=== PATIENT | male | born 1975 | race Caucasian/White ===

== ENCOUNTER 2022-06-14 09:59 | Emergency (ER) | payer MEDICARE, MEDICAID, SELFPAY ==
--- NOTE | ~2022-06-14 | XR_ITS ---
EXAMINATION: XR ANKLE, RIGHT CLINICAL INFORMATION: Twisted ankle. COMPARISON: None TECHNIQUE: AP, lateral, and mortise views of the right ankle. XR/XR ankle RT min 3V FINDINGS/IMPRESSION: Mild soft tissue swelling appears present over the lateral malleolus. No fracture or dislocation is directly visualized. The joint spaces appear maintained. No lytic or sclerotic bony lesion is identified.
[2022-06-14 10:12] VITALS: BP 120/81; PULSE 61; RESP 18; TEMP 36.6; O2SAT 98; BMI 25.0
--- NOTE | 2022-06-14 12:24 | ED_ITS ---
HPI - Extremity Injury (Lower) General Chief Complaint: Extremity Injury, Lower Stated Complaint: r ankle inj Time Seen by Provider: 06/14/22 12:23 Source: patient Mode of arrival: ambulatory Limitations: no limitations History of Present Illness HPI Narrative: 46-year-old male here with multiple injuries to the right ankle over the last few weeks most recently today had an inversion injury with pain over the ankle. No numbness, tingling, weakness. Pain is worsened with weight-bearing Related Data Home Medications Medication Instructions Recorded Confirmed gabapentin 300 mg capsule 300 mg PO BEDTIME 08/26/21 08/26/21 Previous Rx's Medication Instructions Recorded loratadine 10 mg tablet 10 mg PO DAILY 90 days #30 tabs 04/18/22 atorvastatin 20 mg tablet 20 mg PO DAILY for cholesterol #90 04/20/22 tabs ibuprofen 600 mg tablet 600 mg PO Q6H PRN pain #30 tabs 06/14/22 Allergies Allergy/AdvReac Type Severity Reaction Status Date / Time No Known Allergies Allergy Verified 08/26/21 14:10 Review of Systems Review of Systems: Yes all other systems are reviewed and are negative Constitutional: Constitutional: Reports no additional constitutional complaints, Denies body ache(s), Denies chills, Denies fever(s), Denies headache(s) and Denies weakness Eyes: Eyes: Reports no additional eye complaints and Denies change in vision ENT: Reports system reviewed and no additional complaints, except as documented, Denies dizziness, Denies headache(s), Denies nasal congestion, Denies nasal discharge and Denies neck pain Cardiovascular: Cardiovascular: Reports no additional cardiovascular complain ts, Denies chest pain, Denies leg edema and Denies dyspnea Respiratory: Respiratory: Reports no additional respiratory complaints, Denies cough and Denies dyspnea Gastrointestinal: Gastrointestinal: Reports no additional gastrointestinal complaints, Denies abdominal pain, Denies diarrhea, Denies nausea and Denies vomiting Genitourinary: Genitourinary: Denies urinary incontinence Musculoskeletal: Musculoskeletal: Reports no additional musculoskeletal complaints, Denies back pain, Reports arthralgias, Denies joint swelling, Denies limited range of motion, Denies neck pain, Denies numbness and Denies tingling Integumentary/Breasts: Skin/Breast: Reports system reviewed and no additional complaints, except as docu and Denies rash Neurologic: Reports system reviewed and no additional complaints, except as documented, Denies Abnormal speech present, Denies dizziness, Denies headache(s), Denies numbness, Denies tingling and Denies weakness PMFSH Past Medical History Attestation statement: The following information was validated with the patient. Source: old records reviewed and nursing notes reviewed Medical History High cholesterol Surgical History History of surgery Family History Family History Father CAD (coronary artery disease) Myocardial infarction Mother No problems noted. Brother Alive and well Social History Social History Housing: House Alcohol intake: former Patient Tobacco Use Status: Former Tobacco user Quit Date: 2012 Tobacco use type: Cigarette e-Cigarette/Vaping Use: Never Used Second Hand Smoke Exposure: No Advance Directives: No Advance Directives Information Provided: No service: No Current occupational status: disabled Current occupation: mental disabled. Physical Exam Vital Signs: Vital Signs: Last Vital Signs Temp 98 F 06/14/22 10:12 Pulse 61 06/14/22 10:12 Resp 18 06/14/22 10:12 BP 120/81 06/14/22 10:12 Pulse Ox 98 06/14/22 10:12 O2 Del Method 06/14/22 10:12 BMI result Body Mass Index 25.0 Const: General: cooperative, healthy appearing, comfortable and no acute distress Orientation/consciousness: patient oriented x3 Limitations: no limitations HEENT: Head: Yes normal to inspection Ears: hearing grossly normal bilaterally General nose exam: Normal external nose present Face and sinus: Yes normal facial exam Mouth: Normal oral and palatal mucosa present Throat: Yes posterior oropharynx normal Eyes: General: appearance normal, both eyes and all related structures Pupils: Equal, round and reactive pupils present Neck: Neck: Yes normal visual inspection Chest: Chest palpation & inspection: normal inspection of the chest Resp: Effort & Inspection: normal respiratory effort Auscultation: clear to auscultation bilaterally Cardio: Rate: regular rate Rhythm: regular rhythm Peripheral pulses: Peripheral pulses 2+ throughout GI: Inspection: Yes normal to inspection Palpation (GI): Soft to palpation and nontender Auscultation: normal bowel sounds Back/Spine/Pelvis: Thoracic/Lumbar Spine: thoracic and lumbar spine normal to inspection Skin: General skin exam: no rashes or lesions noted Neuro: General: patient oriented x3, no focal motor deficits and normal sensation to monofilament Cranial nerves: Yes Equal, round and reactive pupils present Cognition (Neuro): normal cognition Speech: No Abnormal speech present Gait exam (Neuro): Normal gait present Motor exam (neuro): 5/5 motor strength present throughout Extrem: Other: Tenderness over the right lateral ankle with full range of motion. Neurova scular intact distally. Palpable DP and PT pulses General: Yes normal to inspection Course Course Course Narrative: X-ray show no acute finding. Likely sprain. Patient placed in air cast and crutches. Reviewed rice. Reviewed worrisome signs and symptoms of when to re turn to the emergency room. Comfortable discharge home. MDM - Extremity Injury (Lower) MDM Narrative Medical decision making narrative: Inversion injury to right ankle. Will check x-rays Medical Records Attestation: I reviewed the patient's medical records. Lab Data Attestation: I reviewed the patient's lab results. Imaging Data ankle xray: Attestation: I personally reviewed and interpreted this imaging study as follows: Radiologist's impression: Launch?Image [place] [address] XRay Report Signed Patient: Adal Colbert MR#: [id number] : 1975 Acct:[id number] Age/Sex: 46 / M ADM Date: 06/14/22 Loc: HO.ED Attending Dr: Ordering Physician: Generic ED Physician Date of Service: 06/14/22 Procedure(s): XR ankle RT min 3V Accession Number(s): [id number] cc: Generic ED Physician~ EXAMINATION: XR ANKLE, RIGHT CLINICAL INFORMATION: Twisted ankle.? COMPARISON: None? TECHNIQUE: AP, lateral, and mortise views of the right ankle. XR/XR ankle RT min 3V FINDINGS/IMPRESSION: ? Mild soft tissue swelling appears present over the lateral malleolus. ? No fracture or dislocation is directly visualized. The joint spaces appear maintained. ? No lytic or sclerotic bony lesion is identified. Procedures Procedure Narrative Procedure Narrative: Air cast, crutches Discharge Plan Discharge Clinical Impression: Ankle sprain and strain Patient Disposition: Home, Self-Care Instructions: Ankle Sprain (ED) Additional Instructions: Rest, ice, elevation Use the Aircast and crutches for ambulation until able to bear weight without experiencing pain Prescriptions: New ibuprofen 600 mg tablet 600 mg PO Q6H PRN (Reason: pain) Qty: 30 0RF No Action loratadine 10 mg tablet 10 mg PO DAILY 90 Days Qty: 30 3RF atorvastatin 20 mg tablet 20 mg PO DAILY Qty: 90 1RF gabapentin 300 mg capsule 300 mg PO BEDTIME Referrals: Liang Bautista PA-C [Primary Care Provider] - 1 week (for persistent symptoms )
[2022-06-14] MEDS: Ibuprofen 600 MG TABLET PO (12:49)
== END 2022-06-14 12:59 | disposition home or self-care (01) ==
PROVIDERS: Emergency Provider Emergency Medicine; PCP Physician Assistant
DX: S93.401A Sprain of unspecified ligament of right ankle, initial encounter (principal); S96.911A Strain of unspecified muscle and tendon at ankle and foot level, right foot, initial encounter; X50.1XXA Overexertion from prolonged static or awkward postures, initial encounter; Y93.9 Activity, unspecified; Y92.9 Unspecified place or not applicable; Y99.9 Unspecified external cause status
CPT/HCPCS: 73610; 99283; 99284

== ENCOUNTER 2023-07-28 13:46 | Outpatient (AMB) | payer MEDICARE, MEDICAID, SELFPAY ==
--- NOTE | 2023-07-28 13:56 | A.OFFPC_ITS ---
Vital Signs 07/28/23 14:02 Height 5 ft 7 in Weight 170 lb 4 oz BMI 26.7 BP 112/80 Blood Pressure Location Lt brachial Position Sitting Respiration 17 Pulse 78 Pulse Source Pulse Oximeter Pulse Oximetry (%) 98 Oxygen Delivery Method Room Air Intake Visit Reasons: discuss medical issues Intake Note: Pt here to request an emotional support letter to keep his mother's two cats after her passing. Senior Net Web Developer Required: No Accompanied by: Self / Same As Patient Allergies No Known Allergies Allergy (Verified 07/28/23 14:03) Tobacco use date assessed: 02/19/23 Dental Screening Dental Screen Date: 07/28/23 Did you have a dental visit in the last 12 months?: No Did you have a dental problem in the last 6 months where you did not have access to dental care?: No Was dental information given to patient?: Patient declined HPI HPI Comments History of Present Illness Details Patient is a 47 year male here today for a friend establish care visit.? Patient has a past medical history significant for hyperlipidemia, bipolar disorder, ADHD , allergic rhinitis. Patient reports today to discuss no letter for emotional support animal. Patient made aware this PCP does not write letters for emotional support animals and patient was advised to follow-up with a psychiatrist. Patient not currently following with a psychiatrist, offered referral to Psychiatry. Patient visibly not happy that he was deferred to Psychiatry and states that he would just follow up with his therapist in asked to leave this appointment and got up in left. Denies any other complaints. [facility] Surgical History History of surgery Family History Father CAD (coronary artery disease) Myocardial infarction Mother No problems noted. Brother Alive and well Social History Housing: House Alcohol intake: former Patient Tobacco Use Status: Former Tobacco user Quit Date: 2012 Tobacco use type: Cigarette e-Cigarette/Vaping Use: Never Used Second Hand Smoke Exposure: No service: No Current occupational status: disabled Current occupation: mental disabled. Cognitive needs: No Hearing needs: No Vision needs: No Questionnaire Thrive Questionnaire Date Thrive assessed: 02/19/23 MAGY-7 AMB Questionnaire MAGY-7 Date MAGY - 7 assessed: 02/19/23 Source: Developed by Drs. Jatin Lee, Jenniffer Leong, Kodak Andrew and colleagues, with an educational duy from [employer]. Review of Systems Const Denies chills, Denies fatigue, Denies fever(s) and Denies poor appetite Eyes Denies no additional complaints ENT Reports no additional complaints Card Denies chest pain, Denies syncope, Denies rapid heart rate and Denies dyspnea Resp Denies cough and Denies dyspnea GI Reports no additional complaints Reports no additional complaints, Denies dysuria, Denies urinary frequency and Denies urinary urgency Neuro Denies confusion and Denies syncope Psych Denies confusion Endo Denies fatigue Physical exam (Primary Care) Vital Signs: Last Vital Signs Pulse 78 07/28/23 14:02 Resp 17 07/28/23 14:02 BP 112/80 07/28/23 14:02 Pulse Ox 98 07/28/23 14:02 Oxygen Delivery Method Room Air 07/28/23 14:02 BMI result Body Mass Index 26.7 Tobacco/Smoking Status: Tobacco use Status Tobacco use date assessed 02/19/23 07/28/23 13:56 Patient Tobacco Use Status Former Tobacco user 07/28/23 13:56 Tobacco use type Cigarette 07/28/23 13:56 e-Cigarette/Vaping Use Never Used 07/28/23 13:56 Thrive Assessment: Date of Thrive Assessment Date Thrive assessed 02/19/23 07/28/23 13:56 Const General: No confusion Orientation/consciousness: No confusion Neuro General: No confusion Office Procedures Flu Questionnaire Does the patient have a severe egg allergy?: No Does the patient have severe life threatening allergies?: No Does the patient have a fever or illness today?: No Has the patient ever had Guillain-[place] Syndrome?: No Has the patient ever had any past reaction to a flu shot?: No Immunizations flu vacc [id number] 6mos up(PF) 60 mcg(15 mcgx4)/0.5 mL IM syringe Performing Provider: WALT Arthur [facility] [place] [facility] Administered by: LUCAS Jon on 07/28/23 14:14 Dose Route Admin Location Dispensed Lot Number Expiration Date NDC Cannery Tender Engineer 0.5 mL IM Left Deltoid 0.5 mL [id number] 04/03/24 88953-775-79 Astonish Results VIS Given Date VIS Provided VIS Publication Date 07/28/23 Single Vaccine 21 Eligibility Eligibility Date Funding Source Not [facility] Eligible 07/28/23 Private Assessment and Plan Assessment & Plan (1) Bipolar 1 disorder, manic, moderate: Code(s): F31.12 - Bipolar disorder, current episode manic without psychotic features, moderate Plan: Patient did referred to follow-up with Psychiatry for emotional support animal. (2) HLD (hyperlipidemia): Code(s): E78.5 - Hyperlipidemia, unspecified Qualifiers: Hyperlipidemia type: mixed hyperlipidemia Qualified Code(s): E78.2 - Mixed hyperlipidemia Plan: Continue on atorvastatin 20 mg daily. Follow low-cholesterol diet. Orders: Orders Influenza [id number] Immunization 07/28/23 Z23 - Encounter for immunization Medications: New loratadine 10 mg PO DAILY 30 tabs 3RF Coding Level of Care Code Est Pt Level 3 (84394) Diagnoses Bipolar 1 disorder, manic, moderate F31.12 Mixed hyperlipidemia E78.2 Hyperlipidemia type: mixed hyperlipidemia
[2023-07-28 14:02] VITALS: BP 112/80; PULSE 78; RESP 17; O2SAT 98; BMI 26.7
== END 2023-07-28 14:59 | disposition home or self-care (01) ==
PROVIDERS: PCP Physician Assistant; Visit Provider Nurse Practitioner Family
DX: Z23 Encounter for immunization (principal)
CPT/HCPCS: 90471; 90686; 99213

== ENCOUNTER 2023-10-08 12:22 | Outpatient (AMB) | payer MEDICARE, MEDICAID, SELFPAY ==
--- NOTE | 2023-10-08 12:34 | MHC.PC.OV ---
Vital Signs 10/08/23 12:39 Height 5 ft 7 in Weight 163 lb 8 oz BMI 25.6 BP 110/60 Blood Pressure Location Lt brachial Position Sitting Pulse 75 Pulse Source Pulse Oximeter Pulse Oximetry (%) 96 Oxygen Delivery Method Room Air Intake Visit Reasons: pain and lump behind right knee Intake Note: Patient is here today for pain and swelling behind right knee ongoing for months Health Physicist Required: No Mantel Craftsman: Not Required per policy Accompanied by: Self / Same As Patient Allergies No Known Allergies Allergy (Verified 10/08/23 12:38) Medication List - Last Reconciled 10/08/23 by Odell Muller MD atorvastatin 20 mg PO DAILY cetirizine (Zyrtec) 10 mg PO DAILY 90 days gabapentin 300 mg PO BEDTIME 30 days ibuprofen 600 mg PO Q6H 10 days loratadine 10 mg PO DAILY Tobacco use date assessed: 10/08/23 Dental Screening Dental Screen Date: 10/08/23 Did you have a dental visit in the last 12 months?: No Did you have a dental problem in the last 6 months where you did not have access to dental care?: No Was dental information given to patient?: No HPI pain and lump behind right knee HPI Details 48-year-old male presents to the office for a follow-up visit. I am covering for his primary care provider. Patient is complaining of a painful swelling behind his right knee. He has had this swelling for many years. However in the last 2 or 3 days it has gotten very painful. He has not able to bend his knee completely. Does not recall any recent fall or injury. [facility] Surgical History History of surgery Family History Father CAD (coronary artery disease) Myocardial infarction Mother No problems noted. Brother Alive and well Social History Housing: House Alcohol intake: former Patient Tobacco Use Status: Former Tobacco user Quit Date: 2012 Tobacco use type: Cigarette e-Cigarette/Vaping Use: Never Used Second Hand Smoke Exposure: No service: No Current occupational status: disabled Current occupation: mental disabled. Cognitive needs: No Hearing needs: No Vision needs: No Questionnaire PHQ-9 Over the last 2 weeks, how often have you been bothered by any of the following problems? 1. Little interest or pleasure in doing things: not at all 2. Feeling down, depressed, or hopeless: not at all 3. Trouble falling or staying asleep, or sleeping too much: not at all 4. Feeling tired or having little energy: not at all 5. Poor appetite or overeating: not at all 6. Feeling bad about yourself - or that you are a failure or have let yourself or your family down: not at all 7. Trouble concentrating on things, such as reading the newspaper or watching television: not at all 8. Moving or speaking so slowly that other people could have noticed. Or the opposite - being so fidgety or restless that you have been moving around a lot more than usual: not at all 9. Thoughts that you would be better off or of hurting yourself in some way: not at all Total score: 0 Depression Screening Interpretation: Negative Depression Screening Done: Yes Source: Developed by Drs. Jatin Lee, Jenniffer Leong, Kodak Andrew and colleagues, with an educational duy from [employer]. Thrive Questionnaire Date Thrive assessed: 10/08/23 I am a: Patient What is your living situation today?: I have a steady place to live Within the past 12 months, did the food you bought not last and you didn't have the money to get more?: Never true Within the past 12 months, did you worry whether your food would run out before you got money to buy more?: Never true Do you have trouble paying for medicines?: No Do you have trouble getting transportation to medical appointments?: No Do you have trouble paying your heating and electricity bill?: No Do you have trouble taking care of your child, family member or friend?: No Do you have trouble with day-to-day activities such as bathing, preparing meals, shopping, managing finances, etc.?: No Are you currently unemployed and looking for a job?: No Are you interested in more education?: No Currently or been in a relationship where the following occur: no concerns reported AUDIT C Alcohol Use Questionnaire (AUDIT-C) 1. How often do you have a drink containing alcohol?: Never Total Score: 0 MAGY-7 AMB Questionnaire MAGY-7 Date MAGY - 7 assessed: 10/08/23 Feeling nervous, anxious, or on edge: 0 = Not at all Not being able to stop or control worryin = Not at all Worrying too much about different things: 0 = Not at all Trouble relaxin = Not at all Being so restless that it is hard to sit still: 0 = Not at all Becoming easily annoyed or irritable: 0 = Not at all Feeling afraid as if something awful might happen: 0 = Not at all Total MAGY-7 score (0-4 normal; 5-9 mild; 10-14 moderate; 15-21 severe): 0 Source: Developed by Drs. Jatin Lee, Jenniffer Leong, Kodak Andrew and colleagues, with an educational duy from [employer]. Physical exam (Primary Care) Vital Signs: Last Vital Signs Pulse 75 10/08/23 12:39 BP 110/60 10/08/23 12:39 Pulse Ox 96 10/08/23 12:39 Oxygen Delivery Method Room Air 10/08/23 12:39 BMI result Body Mass Index 25.6 Tobacco/Smoking Status: Tobacco use Status Tobacco use date assessed 10/08/23 10/08/23 12:45 Patient Tobacco Use Status Former Tobacco user 10/08/23 12:35 Tobacco use type Cigarette 10/08/23 12:35 e-Cigarette/Vaping Use Never Used 10/08/23 12:35 PHQ-9: PHQ-9 Score PHQ-9: Total score 0 10/08/23 13:19 Depression Screening Interpretation: Negative Thrive Assessment: Date of Thrive Assessment Date Thrive assessed 10/08/23 10/08/23 12:35 Currently or been in a relationship where the following occur: no concerns reported Extrem Other: Right knee: Tender swelling in the popliteal fossa. The swelling is firm Office Procedures Flu Questionnaire Does the patient have a severe egg allergy?: No Does the patient have severe life threatening allergies?: No Does the patient have a fever or illness today?: No Has the patient ever had Guillain-[place] Syndrome?: No Has the patient ever had any past reaction to a flu shot?: No Immunizations flu vacc [id number] 6mos up(PF) 60 mcg(15 mcgx4)/0.5 mL IM syringe Performing Provider: dOell Muller MD [facility] Administered by: FRANCHESCA Melara on 10/08/23 13:19 Dose Route Admin Location Dispensed Lot Number Expiration Date NDC Infrastructure Project Manager 0.5 mL IM Right Deltoid 0.5 mL [id number] 04/03/24 [id number] [employer] VIS Given Date VIS Provided VIS Publication Date 10/08/23 Single Vaccine 21 Eligibility Eligibility Date Funding Source Not [facility] Eligible 10/08/23 Private Assessment and Plan Assessment & Plan (1) Jackson's cyst of knee: Code(s): M71.20 - Synovial cyst of popliteal space [Jackson], unspecified knee Plan: X-ray of the knee ordered. Knee brace provided. Meloxicam ordered. Patient was advised rest till the inflammation subsides. Orders: Orders Influenza [id number] Immunization Today Z23 - Encounter for immunization Medications: Refilled loratadine 10 mg PO DAILY 30 tabs 3RF Coding Level of Care Code Est Pt Level 4 (78778) Diagnoses Jackson's cyst of knee M71.20
[2023-10-08 12:39] VITALS: BP 110/60; PULSE 75; O2SAT 96; BMI 25.6
== END 2023-10-08 14:00 | disposition home or self-care (01) ==
PROVIDERS: PCP Physician Assistant; Visit Provider Internal Medicine
DX: M71.20 Synovial cyst of popliteal space [Baker], unspecified knee (principal); Z23 Encounter for immunization
CPT/HCPCS: 90471; 90686; 99214

== ENCOUNTER 2023-11-02 13:05 | Outpatient (REF) | payer MEDICARE, MEDICAID, SELFPAY ==
--- NOTE | ~2023-11-02 | US_ITS ---
EXAMINATION: US EXTREMITY NONVASCULAR, RIGHT POPLITEAL FOSSA CLINICAL INFORMATION: Right leg pain behind right knee, popliteal fossa. COMPARISON: None available. TECHNIQUE: Targeted ultrasound images were obtained by the section crews activities clerk of the area of concern as indicated by the patient in the right popliteal fossa. Radiologist was not in attendance. Images were later provided for interpretation. . FINDINGS: There is an 8.6 x 1.8 x 6.3 cm complex fluid collection with mixed cystic and possibly solid components, in the right popliteal fossa. US/US extremity nonvascular IMPRESSION: Large 8.6 cm complex collection with possible solid components in the right popliteal fossa. Correlation with clinical exam recommended to determine further management including possible MRI with gadolinium could be considered for further evaluation.
== END 2023-11-02 13:06 | disposition home or self-care (01) ==
LOC: HO.US 13:05
PROVIDERS: Visit Provider Internal Medicine
DX: M71.20 Synovial cyst of popliteal space [Baker], unspecified knee (principal)
CPT/HCPCS: 76882

== ENCOUNTER 2023-11-17 08:33 | Outpatient (REF) | payer MEDICARE, MEDICAID, SELFPAY ==
--- NOTE | ~2023-11-17 | XR_ITS ---
EXAMINATION: XR BOTH KNEES AP STANDING XR RIGHT KNEE, 2 VIEWS CLINICAL INFORMATION: Right knee pain COMPARISON: None TECHNIQUE: Standing AP view of both knees and lateral and sunrise views of the right knee. FINDINGS: LEFT KNEE: Large joint effusion. No fracture or malalignment. Small patellar osteophytes. Joint spaces appear well-preserved. Mild soft tissue swelling. Joint spaces are normal. RIGHT KNEE: The bones, joints, and soft tissues are normal on the single AP view. XR/XR knee RT 2V IMPRESSION: Large left knee joint effusion. No acute osseous findings. Minimal patellofemoral compartment osteoarthritis.
--- NOTE | ~2023-11-17 | XR_ITS ---
EXAMINATION: XR BOTH KNEES AP STANDING XR RIGHT KNEE, 2 VIEWS CLINICAL INFORMATION: Right knee pain COMPARISON: None TECHNIQUE: Standing AP view of both knees and lateral and sunrise views of the right knee. FINDINGS: LEFT KNEE: Large joint effusion. No fracture or malalignment. Small patellar osteophytes. Joint spaces appear well-preserved. Mild soft tissue swelling. Joint spaces are normal. RIGHT KNEE: The bones, joints, and soft tissues are normal on the single AP view. XR/XR knee standing BI IMPRESSION: Large left knee joint effusion. No acute osseous findings. Minimal patellofemoral compartment osteoarthritis.
== END 2023-11-17 08:34 | disposition home or self-care (01) ==
LOC: HO.HOSX 08:33
PROVIDERS: Visit Provider Physician Assistant
DX: M23.91 Unspecified internal derangement of right knee (principal)
CPT/HCPCS: 20610; 73560; 73565; 99202; J1040

== ENCOUNTER 2023-11-17 15:12 | Outpatient (AMB) | payer MEDICARE, MEDICAID, SELFPAY ==
--- NOTE | 2023-11-17 15:28 | MHC.OFFVIS ---
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 Intake Note: Adal is a 48 year old male who presents today as a new patient for a evaluation for his right knee pain. He was seen with his PCP on 10/08/22 for the lump be hind his knee. Patient reports he noticed a lump behind his knee about a year ago. He states that his pain is worse when he is walking, and using the stairs. Patient was given a knee brace and meloxicam which are providing him with relief. 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 HPI Details 48-year-old male who presents in the office today, as a new patient, for an evaluation of right knee pain. The patient was seen in her PCP office on 10/08/2023 where he has a complaint of painful edema behind the right knee for many years. Ultrasound of the right knee were obtained. He was supplied with a knee brace. While in the office today the patient reports noticing the lump behind the knee about a year ago, 2022. He states the pain increases when ambulating and using the stairs. He reports the pain increasing about 8 months ago with changes in size. He states ice and rest help give him some relief. [facility] Surgical History History of surgery Family History Father CAD (coronary artery disease) Myocardial infarction Mother No problems noted. Brother Alive and well Social History Housing: House Alcohol intake: former Patient Tobacco Use Status: Former Tobacco user Quit Date: 2012 Tobacco use type: Cigarette e-Cigarette/Vaping Use: Never Used Second Hand Smoke Exposure: No service: No Current occupational status: disabled Current occupation: mental disabled. Cognitive needs: No Hearing needs: No Vision needs: No Review of Systems Const All systems reviewed & are unremarkable except as noted in HPI and below Physical Exam Const General: cooperative and no acute distress Orientation/consciousness: patient oriented x3 Resp Effort & Inspection: normal respiratory effort and able to speak in complete sentences Cardio Peripheral pulses: Peripheral pulses 2+ throughout Skin General skin exam: no rashes or lesions noted Neuro General: patient oriented x3 Extrem Other: Right knee: Normal to inspection. No ecchymosis, erythema, or joint effusion. No tenderness to palpation to the medial or lateral joint lines. Full knee extension and flexion. Negative Tiffany's. Negative anterior drawer. NVI. Office Procedures Joint Injection/Drain Joint Injection/Drain Primary Site: right knee Prep: site was prepped using aseptic technique, ethochloride spray was applied and injection warnings given Injected: 80 mg of, DepoMedrol and with 8 mL of (2% plain lido) Approach Used: anterolateral Procedure: The patient tolerated the procedure well, but had some pain with the injection and there was some relief with the local anesthesia Coding 32144 - Large joint Procedure code (CPT) selection complete Assessment & Plan Assessment & Plan (1) Internal derangement of right knee: Code(s): M23.91 - Unspecified internal derangement of right knee Plan Mr. Colbert is a 48-year-old male who presents in the office today, as a new patient, for an evaluation of right knee pain. The patient was seen in her PCP office on 10/08/2023 where he has a complaint of painful edema behind the right knee for many years. Ultrasound of the right knee were obtained. He was supplied with a knee brace. While in the office today the patient reports noticing the lump behind the knee about a year ago, 2022. He states the pain increases when ambulating and using the stairs. He reports the pain increasing about 8 months ago with changes in size. He states ice and rest help give him some relief. We discussed the patient having a levine?s cyst and different ways to treat the cyst, inflammation, and irritation. The patient was offered a cortisone injection in the right knee with 80 mg of DepoMedrol. The patient was explained the risk, benefits, and alternatives to receiving this injection. After receiving consent for the injection, the patient had the procedure done while in office today. The patient tolerated the procedure well with no complications. Follow up will be PRN, or sooner if needed. X-rays of the right knee which were obtained while in the office today and were reviewed by me, Lady Gonzalez PA-C, revealed no acute fracture or dislocation. Ultrasound of the right knee, obtained on 11/02/2023, revealed: Large 8.6 cm complex collection with possible solid components in the right popliteal fossa. Correlation with clinical exam recommended to determine further management including possible MRI with gadolinium could be considered for further evaluation. Orders: Orders XR knee standing BI Today M25.569 - Pain in unspecified knee XR knee RT 2V Today M25.569 - Pain in unspecified knee Patient Instructions: Scribed by Jody Rebolledo bacteriologist medical, for Lady Gonzalez PA-C on 11/17/2023 at 3:20 pm, EST. Coding Level of Care Code New Pt Level 3 (99431) Diagnoses Internal derangement of right knee M23.91 CPT Codes Coding - 33203 Large joint: 87846 - Large joint ([id number])
== END 2023-11-17 15:51 | disposition home or self-care (01) ==
PROVIDERS: PCP Physician Assistant; Visit Provider Physician Assistant
DX: M23.91 Unspecified internal derangement of right knee (principal)
CPT/HCPCS: 20610; 99203

== ENCOUNTER 2023-12-03 13:50 | Outpatient (AMB) | payer MEDICARE, MEDICAID, SELFPAY ==
[2023-12-03 14:09] VITALS: BP 104/62; PULSE 64; O2SAT 98; BMI 25.9
--- NOTE | 2023-12-03 14:09 | MHC.PC.OV ---
Vital Signs 12/03/23 14:09 Height 5 ft 7 in Weight 165 lb 6 oz BMI 25.9 BP 104/62 Blood Pressure Location Lt brachial Position Sitting Pulse 64 Pulse Source Pulse Oximeter Pulse Oximetry (%) 98 Oxygen Delivery Method Room Air Intake Visit Reasons: Right Knee Inflammation and Pain Intake Note: Pt is here for experiencing inflammation and pain in the right knee for approximately two weeks. 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 Over the last several weeks he has noted right knee swelling and a large palpable cystic like structure behind his right knee. He has followed up with Orthopedics and received a cortisone injection which temporarily gave him some pain relief and decreased his swelling. He reports his swelling is now back and still has pain. He is an avid skateboarder. He continues to pain and swelling in his right knee though better than initial presentation. Will try for MRI of the right knee as he does have a large popliteal cystic like structure and continues to have notable swelling in his right knee. 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 [facility] Surgical History History of surgery Family History Father CAD (coronary artery disease) Myocardial infarction Mother No problems noted. Brother Alive and well Social History Housing: House Alcohol intake: former Patient Tobacco Use Status: Former Tobacco user Quit Date: 2012 Tobacco use type: Cigarette e-Cigarette/Vaping Use: Never Used Second Hand Smoke Exposure: No service: No Current occupational status: disabled Current occupation: mental disabled. Cognitive needs: No Hearing needs: No Vision needs: No Questionnaire Thrive Questionnaire Date Thrive assessed: 10/08/23 MAGY-7 AMB Questionnaire MAGY-7 Date MAGY - 7 assessed: 10/08/23 Source: Developed by Drs. Jatin Lee, Jenniffer Leong, Kodak Andrew and colleagues, with an educational duy from [employer]. Review of Systems Const Denies headache(s) Eyes Denies loss of vision ENT Denies vertigo, Denies dizziness, Denies headache(s) and Denies sore throat Card Denies chest pain, Denies leg edema and Denies lightheadedness Resp Denies cough, Denies hemoptysis and Denies wheezing GI Denies abdominal pain, Denies melena, Denies constipation, Denies diarrhea and Denies vomiting Denies dysuria, Denies urinary frequency and Denies urinary urgency Musc Denies arthralgias, Denies joint swelling, Denies numbness and Denies tingling Neuro Denies Abnormal speech present, Denies behavioral changes, Denies vertigo, Denies dizziness, Denies headache(s), Denies loss of vision, Denies memory loss, Denies numbness and Denies tingling Psych Denies anxiety, Denies behavioral changes, Denies depression, Denies memory loss and Denies panic attacks Arun/Lymph Denies easy bleeding and Denies easy bruising Aller/Immun Denies wheezing Physical exam (Primary Care) Vital Signs: Last Vital Signs Pulse 64 12/03/23 14:09 BP 104/62 12/03/23 14:09 Pulse Ox 98 12/03/23 14:09 Oxygen Delivery Method Room Air 12/03/23 14:09 BMI result Body Mass Index 25.9 Tobacco/Smoking Status: Tobacco use Status Tobacco use date assessed 10/08/23 12/03/23 14:14 Patient Tobacco Use Status Former Tobacco user 12/03/23 14:14 Tobacco use type Cigarette 12/03/23 14:14 e-Cigarette/Vaping Use Never Used 12/03/23 14:14 Thrive Assessment: Date of Thrive Assessment Date Thrive assessed 10/08/23 12/03/23 14:14 Const General: healthy appearing, no acute distress, alert and awake Nutritional Appearance: well nourished Orientation/consciousness: oriented to person, oriented to place and oriented to time HENMT Ears: TM's normal bilaterally General nose exam: Normal nasal mucous membranes and turbinates present Eyes Conjunctivae: conjunctivae normal Sclerae: sclerae normal Pupils: Equal, round and reactive pupils present Neck Neck: Yes no lymphadenopathy and Yes no JVD Thyroid: Thyroid normal Carotids: no bruits Resp Effort & Inspection: normal respiratory effort and not tachypneic Auscultation: no crackles, no rales, no rhonchi and no wheezes Cardio Rate: regular rate Rhythm: regular rhythm Heart sounds: no murmurs and normal S1 and S2 GI Palpation (GI): Soft to palpation, nontender, no hepatomegaly and no splenomegaly Auscultation: normal bowel sounds Skin General skin exam: no rashes or lesions noted and dry skin Neuro General: oriented to person, oriented to place and oriented to time Cranial nerves: Yes Equal, round and reactive pupils present Speech: No Abnormal speech present Gait exam (Neuro): Normal gait present Motor exam (neuro): no tremor noted Extrem Right upper extremity: full ROM Left upper extremity: full ROM Right lower extremity: full ROM; no edema Left lower extremity: full ROM; no edema Knee images: 1. LARGE POPLITEAL MASS Psych Mental Status: mental status grossly normal Speech and movement: Normal speech and movement present Affect: normal affect Attitude: cooperative Thought process: Normal thought process present Assessment and Plan Assessment & Plan (1) Internal derangement of right knee: Code(s): M23.91 - Unspecified internal derangement of right knee Plan: Patient continues to have swelling pain in his right knee. Did get cortisone injection which helped temporarily reduce his pain and swelling though has returned. Does have large with seems to be a synovial cyst behind right knee which is likely causing lot of his issue. Will get MRI with contrast to better define the popliteal popliteal cyst. He will continue resting, icing and using NSAIDs.. Advised him to follow-up with his orthopedic for further management. (2) Synovial cyst of knee: Code(s): M71.20 - Synovial cyst of popliteal space [Jackson], unspecified knee Qualifiers: Laterality: right Qualified Code(s): M71.21 - Synovial cyst of popliteal space [Jackson], right knee Plan: As above Orders: Orders MR knee RT w con 12/03/23 M23.91 - Unspecified internal derangement of right knee, M71.20 - Synovial cyst of popliteal space [Jackson], unspecified knee Coding Level of Care Code Est Pt Level 3 (10655) Diagnoses Internal derangement of right knee M23.91 Synovial cyst of right knee M71.21 Laterality: right
== END 2023-12-03 15:39 | disposition home or self-care (01) ==
PROVIDERS: PCP Physician Assistant; Visit Provider Physician Assistant
DX: M23.91 Unspecified internal derangement of right knee (principal); M71.21 Synovial cyst of popliteal space [Baker], right knee
CPT/HCPCS: 99213

== ENCOUNTER 2023-12-31 07:57 | Outpatient (REF) | payer MEDICARE, MEDICAID, SELFPAY ==
--- NOTE | ~2023-12-31 | MR_ITS ---
EXAMINATION: MR KNEE WITHOUT CONTRAST, RIGHT CLINICAL INFORMATION: Synovial cyst at popliteal space. Mass behind right knee. Continued pain and swelling. COMPARISON: Ultrasound of the popliteal fossa October 2023, x-ray of the right knee November 2023. TECHNIQUE: MRI of the knee without contrast was performed using routine sequences on a high-field scanner. FINDINGS: Exam is partially limited by image-degrading motion artifact most evident on the axial series. MENISCI: Medial Meniscus: Intact. Lateral Meniscus: There is a longitudinal vertical focus of linear increased signal from the femoral to the tibial articular surface of the anterior horn indicative of meniscal tear. See sagittal image 21 series 4. LIGAMENTS: Cruciate: Intact. Collateral: Intact. EXTENSOR MECHANISM: Intact. ARTICULAR CARTILAGE/BONE: Patellofemoral Compartment: Evaluation of the patella cartilage is limited because of the motion artifact. No definite articular abnormality. Medial Compartment: There is minimal subchondral edema and/or cystic change along the lateral weightbearing medial femoral condyle. Overlying articular cartilage grossly intact. Overall minimal arthrosis. Lateral Compartment: Normal. JOINT FLUID AND BURSAE: There is prominent joint effusion with prominent intermediate signal synovitis throughout. There is also a moderate/large Jackson's cyst with prominent similar-appearing intermediate signal synovitis. The cyst measures 4 cm transverse, 2.5 cm AP and 10 cm craniocaudal. MR/MR knee RT wo con IMPRESSION: 1. Tear of the anterior horn of the lateral meniscus. 2. Prominent joint effusion and synovitis. The appearance and the degree of synovitis suggests an underlying inflammatory arthropathy. 3. Moderate/large Jackson's cyst. 4. Minimal arthrosis of the medial compartment.
== END 2023-12-31 07:58 | disposition home or self-care (01) ==
LOC: HO.MRI 07:57
PROVIDERS: PCP Physician Assistant; Visit Provider Physician Assistant
DX: M71.21 Synovial cyst of popliteal space [Baker], right knee (principal); M23.91 Unspecified internal derangement of right knee
CPT/HCPCS: 73721

== ENCOUNTER 2024-01-22 09:11 | Outpatient (AMB) | payer MEDICARE, MEDICAID, SELFPAY ==
--- NOTE | 2024-01-22 09:15 | MHC.OFFVIS ---
Vital Signs 01/22/24 09:22 Height 5 ft 7 in Weight 165 lb BMI 25.8 Intake Visit Reasons: OV-right knee/cyst-discuss surgery Intake Note: Adal is a 48 year old male who presents today for a follow up of his right knee. Patient reports that he is having continued pain. He explains that he refused the contrast of for the MRI. He would like to have surgery, and will refuse any other treatment of the knee. Allergies No Known Allergies Allergy (Verified 01/22/24 09:17) HPI HPI OV-right knee/cyst-discuss surgery: Details: 48-year-old male who presents in the office today for a follow up of right knee pain. I last saw the patient in the office on 11/17/2023 when we discussed ways of treating a levine?s cyst and he was given a cortisone injection. While in the office today the patient reports he is having continued pain. He reports he refused the contrast for the MRI. He would like to have surgery and states he will refuse any other treatment of the right knee. Patient states the cortisone injection gave him a few days of relief. He states the pain in the knee is throughout the knee. He states he has increased pain when lying on his back and standing for more than 25 minutes. He states he is unable to do anything, like skateboarding or other activities in life, and this is upsetting him. Patient states he no longer eats sugar due to his pain. He also reports buying a new bed to help with pain and cannot find relief. 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 Patient denies use of cocaine. [facility] [place] Surgical History History of surgery Family History Father CAD (coronary artery disease) Myocardial infarction Mother No problems noted. Brother Alive and well Social History Housing: House Alcohol intake: former Patient Tobacco Use Status: Former Tobacco user Quit Date: 2012 Tobacco use type: Cigarette e-Cigarette/Vaping Use: Never Used Second Hand Smoke Exposure: No service: No Current occupational status: disabled Current occupation: mental disabled. Cognitive needs: No Hearing needs: No Vision needs: No Review of Systems Const All systems reviewed & are unremarkable except as noted in HPI and below Physical Exam Vital Signs: BMI result Body Mass Index 25.8 Const General: cooperative, healthy appearing and no acute distress Resp Effort & Inspection: normal respiratory effort and able to speak in complete sentences Cardio Rate: regular rate Peripheral pulses: Peripheral pulses 2+ throughout GI Palpation (GI): Soft to palpation Skin Lesions: no lesions Rashes: no rashes Extrem Other: Right knee: Normal to inspection. No ecchymosis, erythema, or joint effusion. No tenderness to palpation to the medial or lateral joint lines. Full knee extension and flexion. Negative Tiffany's. Negative anterior drawer. NVI. Assessment & Plan Assessment & Plan (1) Internal derangement of right knee: Code(s): M23.91 - Unspecified internal derangement of right knee Category: Medical Plan Mr. Colbert is a 48-year-old male who presents in the office today for a follow up of right knee pain. I last saw the patient in the office on 11/17/2023 when we discussed ways of treating a levine?s cyst and he was given a cortisone injection. While in the office today the patient reports he is having continued pain. He reports he refused the contrast for the MRI. He would like to have surgery and states he will refuse any other treatment of the right knee. Patient states the cortisone injection gave him a few days of relief. He states the pain in the knee is throughout the knee. He states he has increased pain when lying on his back and standing for more than 25 minutes. He states he is unable to do anything, like skateboarding or other activities in life, and this is upsetting him. Patient states he no longer eats sugar due to his pain. He also reports buying a new bed to help with pain and cannot find relief. 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 Patient denies use of cocaine. Patient will be scheduled for further evaluation of the right knee with Dr. Leon and to discuss possible treatment options. Also, to further discuss the MRI results with the patient. Follow up will be with Dr. Leon, or sooner if needed. Patient Instructions: Scribed by franki Dacosta scribe, lisa Gonzalez PA-C on 01/22/2024 at 9:34 am, EST.
[2024-01-22 09:22] VITALS: BMI 25.8
== END 2024-01-22 09:43 | disposition home or self-care (01) ==
PROVIDERS: PCP Physician Assistant; Visit Provider Physician Assistant
DX: M23.91 Unspecified internal derangement of right knee (principal)
CPT/HCPCS: 99213

== ENCOUNTER → 2024-01-22 09:11 | Outpatient (BNVA) | payer MEDICARE, MEDICAID, SELFPAY | PROVIDERS: PCP Physician Assistant; Visit Provider Physician Assistant | DX: M23.91 Unspecified internal derangement of right knee (principal) | CPT/HCPCS: 99212 ==

== ENCOUNTER 2024-01-29 12:01 | Outpatient (AMB) | payer MEDICARE, MEDICAID, SELFPAY ==
[2024-01-29 12:11] VITALS: BMI 25.8
--- NOTE | 2024-01-29 12:11 | MHC.OFFVIS ---
Vital Signs 01/29/24 12:11 Height 5 ft 7 in Weight 165 lb BMI 25.8 Intake Visit Reasons: OV-Right knee MRI review-Discuss surgery Intake Note: Adal is a 48 year old male who presents today for a follow up of his right knee. Patient reports that he is having continued pain. He explains that he refused the contrast of for the MRI. He would like to have surgery, and will refuse any other treatment of the knee. Allergies No Known Allergies Allergy (Verified 01/29/24 12:12) HPI HPI OV-Right knee MRI review-Discuss surgery: Details: This is a 48 yo M with right knee pain for ~9 months. He injured his knee with a valgus stress and has had sharp medial knee that has been worsening. He describes catching and sharp pain with twsiting. He enjoys skateboarding. [facility] Surgical History History of surgery Family History Father CAD (coronary artery disease) Myocardial infarction Mother No problems noted. Brother Alive and well Social History Housing: House Alcohol intake: former Patient Tobacco Use Status: Former Tobacco user Quit Date: 2012 Tobacco use type: Cigarette e-Cigarette/Vaping Use: Never Used Second Hand Smoke Exposure: No service: No Current occupational status: disabled Current occupation: mental disabled. Cognitive needs: No Hearing needs: No Vision needs: No Physical Exam Vital Signs: BMI result Body Mass Index 25.8 Const General: cooperative, healthy appearing, no acute distress, well developed and alert HEENT Head: Yes normal to inspection, Yes normocephalic and Yes atraumatic Mouth: moist mucous membranes Eyes General: appearance normal, both eyes and all related structures EOM: EOMs intact bilaterally Chest Other: no audible wheezing. Resp Other: No audible wheezing Effort & Inspection: normal respiratory effort Back/Spine/Pelvis Cervical Spine: normal cervical lordosis Skin General skin exam: no rashes or lesions noted Neuro General: no focal motor deficits Extrem Other: No effusion right knee ttp lateral joint line + lateral Steinmen's Psych Appearance: grossly normal and well kempt Mental Status: mental status grossly normal Speech and movement: Normal speech and movement present Affect: normal affect Attitude: cooperative Results Reviewed Results Reviewed: I personally reviewed the MR images. 1. Tear of the anterior horn of the lateral meniscus. 2. Prominent joint effusion and synovitis. The appearance and the degree of synovitis suggests an underlying inflammatory arthropathy. 3. Moderate/large Jackson's cyst. 4. Minimal arthrosis of the medial compartment. Assessment & Plan Assessment & Plan (1) Acute meniscal tear of knee: Code(s): S83.209A - Unspecified tear of unspecified meniscus, current injury, unspecified knee, initial encounter Category: Medical Plan: This is a 48 M with an acute lateral meniscus tear of the right knee. He is markedly symptomatic and I recommend arthroscopy. I discussed the risks benefits and alternatives including but not limited to the risk of pain, infection, stiffness, need for further surgery as well as potential medical complications such as blood clots, pulmonary embolism and cardiac complications. He expressed understanding. Plan Our surgical scheuler will reach out to him for surgical booking. Right Knee Arthroscopy Coding Level of Care Code Est Pt Level 4 (69150) Diagnoses Acute meniscal tear of knee S83.209A
== END 2024-01-29 12:43 | disposition home or self-care (01) ==
PROVIDERS: PCP Physician Assistant; Visit Provider Orthopaedic Surgery
DX: S83.281A Other tear of lateral meniscus, current injury, right knee, initial encounter (principal)
CPT/HCPCS: 99214

== ENCOUNTER → 2024-01-29 12:01 | Outpatient (BNVA) | payer MEDICARE, MEDICAID, SELFPAY | PROVIDERS: PCP Physician Assistant; Visit Provider Orthopaedic Surgery | DX: S83.281A Other tear of lateral meniscus, current injury, right knee, initial encounter (principal) | CPT/HCPCS: 99212 ==

== ENCOUNTER 2024-02-04 15:44 | Outpatient (AMB) | payer MEDICARE, MEDICAID, SELFPAY ==
--- NOTE | 2024-02-04 16:05 | A.OFFPC_ITS ---
Vital Signs 02/04/24 16:11 Height 5 ft 7 in Weight 162 lb 8 oz BMI 25.4 BP 102/70 Blood Pressure Location Lt brachial Position Sitting Pulse 64 Pulse Source Pulse Oximeter Pulse Oximetry (%) 96 Oxygen Delivery Method Room Air Intake Visit Reasons: Right knee with MMR 02/24/[address] Leon Intake Note: Patient is here for a Pre-op for Right Knee As with MMR scheduled with Dr. Leon on 02/24/24. Labs require: BMP, CBC w/ diff and EKG. Berry Planter Required: No Accompanied by: Self / Same As Patient Allergies No Known Allergies Allergy (Verified 02/04/24 16:30) Medication List - Last Reconciled 02/04/24 by Liang Bautista PA-C atorvastatin 20 mg PO DAILY cetirizine (Zyrtec) 10 mg PO DAILY 90 days gabapentin 300 mg PO BEDTIME 30 days ibuprofen 600 mg PO Q6H 10 days loratadine 10 mg PO DAILY meloxicam 15 mg PO DAILY Tobacco use date assessed: 10/08/23 Dental Screening Dental Screen Date: 10/08/23 HPI Right knee with MMR 02/24/[address] Leon HPI Details Patient is a 48-year-old male here today for a preop visit. Patient's past medical history significant for bipolar disorder, hyperlipidemia and allergic rhinitis.. He was found to have a right lateral meniscal knee tear. Followed up with Orthopedics whom recommends arthroscopic fix. Patient has no history of VT, Congestive heart failure for CVA. He is not on any anticoagulation or anti-platelet therapy. Laboratory Tests 02/05/24 08:02 RBC 4.35 L Hgb 13.1 L Random Glucose 109 Fasting Glucose 109 H [facility] Surgical History History of surgery Family History Father CAD (coronary artery disease) Myocardial infarction Mother No problems noted. Brother Alive and well Social History Housing: House Alcohol intake: former Patient Tobacco Use Status: Former Tobacco user Quit Date: 2012 Tobacco use type: Cigarette e-Cigarette/Vaping Use: Never Used Second Hand Smoke Exposure: No service: No Current occupational status: disabled Current occupation: mental disabled. Cognitive needs: No Hearing needs: No Vision needs: No Questionnaire Thrive Questionnaire Date Thrive assessed: 10/08/23 MAGY-7 AMB Questionnaire MAGY-7 Date MAGY - 7 assessed: 10/08/23 Source: Developed by Drs. Jatin Lee, Jenniffer Leong, Kodak Andrew and colleagues, with an educational duy from [employer]. Review of Systems Const Denies headache(s) Eyes Denies loss of vision ENT Denies vertigo, Denies dizziness, Denies headache(s) and Denies sore throat Card Denies chest pain, Denies leg edema and Denies lightheadedness Resp Denies cough, Denies hemoptysis and Denies wheezing GI Denies abdominal pain, Denies melena, Denies constipation, Denies diarrhea and Denies vomiting Denies dysuria, Denies urinary frequency and Denies urinary urgency Musc Denies arthralgias, Denies joint swelling, Denies numbness and Denies tingling Neuro Denies Abnormal speech present, Denies behavioral changes, Denies vertigo, Denies dizziness, Denies headache(s), Denies loss of vision, Denies memory loss, Denies numbness and Denies tingling Psych Denies anxiety, Denies behavioral changes, Denies depression, Denies memory loss and Denies panic attacks Arun/Lymph Denies easy bleeding and Denies easy bruising Aller/Immun Denies wheezing Physical exam (Primary Care) Vital Signs: Last Vital Signs Pulse 64 02/04/24 16:11 BP 102/70 02/04/24 16:11 Pulse Ox 96 02/04/24 16:11 Oxygen Delivery Method Room Air 02/04/24 16:11 BMI result Body Mass Index 25.4 Tobacco/Smoking Status: Tobacco use Status Tobacco use date assessed 10/08/23 02/04/24 16:05 Patient Tobacco Use Status Former Tobacco user 02/04/24 16:05 Tobacco use type Cigarette 02/04/24 16:05 e-Cigarette/Vaping Use Never Used 02/04/24 16:05 Thrive Assessment: Date of Thrive Assessment Date Thrive assessed 10/08/23 02/04/24 16:05 Const General: healthy appearing, no acute distress, alert and awake Nutritional Appearance: well nourished Orientation/consciousness: oriented to person, oriented to place and oriented to time HENMT Ears: TM's normal bilaterally General nose exam: Normal nasal mucous membranes and turbinates present Eyes Conjunctivae: conjunctivae normal Sclerae: sclerae normal Pupils: Equal, round and reactive pupils present Neck Neck: Yes no lymphadenopathy and Yes no JVD Thyroid: Thyroid normal Carotids: no bruits Resp Effort & Inspection: normal respiratory effort and not tachypneic Auscultation: no crackles, no rales, no rhonchi and no wheezes Cardio Rate: regular rate Rhythm: regular rhythm Heart sounds: no murmurs and normal S1 and S2 GI Palpation (GI): Soft to palpation, nontender, no hepatomegaly and no splenomegaly Auscultation: normal bowel sounds Skin General skin exam: no rashes or lesions noted and dry skin Neuro General: oriented to person, oriented to place and oriented to time Cranial nerves: Yes Equal, round and reactive pupils present Speech: No Abnormal speech present Gait exam (Neuro): Normal gait present Motor exam (neuro): no tremor noted Extrem Right upper extremity: full ROM Left upper extremity: full ROM Right lower extremity: full ROM; no edema Left lower extremity: full ROM; no edema Psych Mental Status: mental status grossly normal Speech and movement: Normal speech and movement present Affect: normal affect Attitude: cooperative Thought process: Normal thought process present Office Procedures EKG Details: Normal sinus rhythm- See scanned in document [id number], Complete Assessment and Plan Assessment & Plan (1) Pre-op evaluation: Code(s): Z01.818 - Encounter for other preprocedural examination Plan: Patient's vitals stable, most recent labs stable. EKG in office showing normal sinus rhythm Patient medically clear for needed elective arthroscopic knee surgery. (2) Acute meniscal tear of knee: Code(s): S83.209A - Unspecified tear of unspecified meniscus, current injury, unspecified knee, initial encounter Qualifiers: Encounter type: subsequent encounter Laterality: right Qualified Code(s): S83.206D - Unspecified tear of unspecified meniscus, current injury, right knee, subsequent encounter Orders: Orders Comprehensive Met. Panel 02/05/24 Z01.818 - Encounter for other preprocedural examination Complete Blood Count Auto Diff 02/05/24 Z01.818 - Encounter for other preprocedural examination AMB EKG-In Office Today Z01.818 - Encounter for other preprocedural examination Coding Level of Care Code Est Pt Level 4 (79287) Diagnoses Pre-op evaluation Z01.818 Acute meniscal tear of right knee, subsequent encounter S83.206D Encounter type: subsequent encounter Laterality: right CPT Codes EKG - CPT: 31024-[id number], Complete ([id number])
[2024-02-04 16:11] VITALS: BP 102/70; PULSE 64; O2SAT 96; BMI 25.4
== END 2024-02-04 17:34 | disposition home or self-care (01) ==
PROVIDERS: PCP Physician Assistant; Visit Provider Physician Assistant
DX: S83.206D Unspecified tear of unspecified meniscus, current injury, right knee, subsequent encounter (principal); Z01.818 Encounter for other preprocedural examination
CPT/HCPCS: 93000; 99214

== ENCOUNTER 2024-02-05 07:53 | Outpatient (REF) | payer MEDICARE, MEDICAID, SELFPAY ==
[2024-02-05 08:03] LABS: MANUAL DIFF FLAG NO
[2024-02-05 09:10] LABS: Basophils Percent Auto 0.6 % (0-2); Eosinophils Absolute Auto 0.2 X10*3/uL (0.0-0.4); Eosinophils Percent Auto 3.3 % (0-4); Hematocrit 39.8 % (42.0-52.0); Hemoglobin 13.1 g/dl (14.0-18.0); Imm Gran Abs Auto 0.02 X10*3/uL (0.00-0.03); Imm Gran Pct Auto 0.3 % (0.0-0.4); Lymphocytes Absolute Auto 1.7 X10*3/uL (1.2-4.9); Lymphocytes Percent Auto 24.9 % (20-40); Mean Corpuscular HGB Conc 32.9 g/dl (31.0-36.0); Mean Corpuscular Hemoglobin 30.1 pg (27.0-33.0); Mean Corpuscular Volume 91.5 fL (80.0-98.0); Mean Platelet Volume 9.5 fL (9.4-12.4); Monocytes Absolute Auto 0.4 X10*3/uL (0.1-1.2); Neutrophils Absolute Auto 4.5 x10*3/uL (2.0-8.3); Neutrophils Percent Auto 64.9 % (45-73); Platelet Count 332 X10*3/uL (160-400); Red Blood Count 4.35 X10*6/uL (4.60-5.80); Red Cell Distribution Width 12.4 % (11.0-16.0)
[2024-02-05 09:40] LABS: Alanine Aminotransferase 21 U/L (0-40); Albumin Level 4.1 g/dL (3.5-5.0); Alkaline Phosphatase 73 U/L (39-117); Anion Gap 14 (12-20); Aspartate Amino Transferase 22 U/L (5-37); Bilirubin Total 0.3 mg/dL (0.0-1.0); Blood Urea Nitrogen 13 mg/dL (9-16); Calcium 9.9 mg/dL (8.4-10.2); Carbon Dioxide 24 mmol/L (22-29); Chloride 104 mmol/L (96-108); Cholesterol 150 mg/dL (<200); Estimated Glomerular Filt Rate > 60; Glucose Fasting 109 mg/dL (60-99); Glucose Random 109 mg/dL (60-115); HDL Cholesterol 51 mg/dL (>40); LDL Cholesterol Calculated 90 mg/dL (<100); Potassium 4.2 mmol/L (3.3-5.1); Sodium 138 mmol/L (135-145); Total Protein 7.7 g/dL (6.5-8.0); Triglycerides 49 mg/dL (<150)
== END 2024-02-05 07:54 | disposition home or self-care (01) ==
LOC: HO.LAB 07:53
PROVIDERS: PCP Physician Assistant; Visit Provider Physician Assistant
DX: Z01.818 Encounter for other preprocedural examination (principal); E78.2 Mixed hyperlipidemia
CPT/HCPCS: 36415; 80053; 80061; 85025; 85027

== ENCOUNTER 2024-02-24 08:35 | Day surgery (SDC) | payer MEDICARE, MEDICAID, SELFPAY ==
[2024-02-22 13:36] VITALS: BMI 25.8
--- NOTE | 2024-02-22 15:40 | P.CONAN_ITS ---
Documented by User: Fatou Payton NP 02/22/24 15:41 HPI - Anesthesia Eval Consult details Narrative: 48yo M for Right Knee Arthroscopy, medial meniscal repair Optimized per PCP [facility] Active Problems Active Problems: All Active Problems Pre-op evaluation (Acute) Acute meniscal tear of knee (Acute) Internal derangement of right knee (Acute) Synovial cyst of knee (Acute) Right knee pain (Acute) Bipolar 1 disorder, manic, moderate (Acute) HLD (hyperlipidemia) (Acute) Allergic rhinitis (Acute) Past Medical History Medical History Hyperlipidemia Bipolar disorder Family History Family History Father CAD (coronary artery disease) Myocardial infarction Mother No problems noted. Brother Alive and well Surgical History Surgical History History of surgery Social History Social History Housing: House Alcohol intake: former Patient Tobacco Use Status: Former Tobacco user Quit Date: 2012 Tobacco use type: Cigarette e-Cigarette/Vaping Use: Never Used Second Hand Smoke Exposure: No service: No Current occupational status: disabled Current occupation: mental disabled. Cognitive needs: No Hearing needs: No Vision needs: No Meds Allergies Allergy/AdvReac Type Severity Reaction Status Date / Time No Known Allergies Allergy Verified 02/04/24 16:30 Exam Height,Weight and Vital Signs: Height 5 ft 7 in Weight 74.843 kg Pertinent Lab Results Pertinent Lab Results: Laboratory Tests 02/05/24 08:02 WBC 7.0 Hgb 13.1 L Hct 39.8 L Plt Count 332 Sodium 138 Potassium 4.2 Chloride 104 Carbon Dioxide 24 BUN 13 Creatinine 0.96 Narrative Narrative: EKG 02/2024 NSR @ 72 Assessment and Plan Assessment Anesthesia Assessment: Chart Reviewed Documented by User: Jhoana Jacobsen MD 02/24/24 07:34 [facility] Past Medical History Medical History Hyperlipidemia Bipolar disorder Family History Family History Father CAD (coronary artery disease) Myocardial infarction Mother No problems noted. Brother Alive and well Family history of problems with anesthesia: No Surgical History Surgical History History of surgery History of Problems with Anesthesia: No Social History Social History Housing: House Alcohol intake: former Patient Tobacco Use Status: Former Tobacco user Quit Date: 2012 Tobacco use type: Cigarette e-Cigarette/Vaping Use: Never Used Second Hand Smoke Exposure: No service: No Current occupational status: disabled Current occupation: mental disabled. Cognitive needs: No Hearing needs: No Vision needs: No Meds Allergies Allergy/AdvReac Type Severity Reaction Status Date / Time No Known Allergies Allergy Verified 02/04/24 16:30 Exam Airway Mallampati Class: II TM Dist: >3cm Neck ROM: Full Heart: rrr Lungs: cta Assessment and Plan Assessment Anesthesia Assessment: Anesthesia Plan Discussed Final Anesthetic Review Family History of Problems with Anesthesia: No History of Problems with Anesthesia: No NPO: Yes ASA Class: II Final Preanesthetic Review: No Changes in Pt Med Stat, Meds/Allgs Chart Reviewed, Consent Obtained/Reviewed, Anes Risks/Benef Reviewed and DNR Form (If Appl.) Patient Risk: Intermediate Procedure Risk: Low Anesthetic Plan Anesthetic Plan: GA Disposition: Standard PACU
[2024-02-24 08:46] VITALS: BMI 25.5
[2024-02-24 08:59] VITALS: BP 117/76; PULSE 72; RESP 16; TEMP 37.1; O2SAT 97
[2024-02-24] MEDS: Lactated Ringers 1,000 ML 100 ML IVCONT (09:16)
--- NOTE | 2024-02-24 10:16 | MHC.SHP ---
Pre-Procedural Eval Section A - 24 Hr Update-Section A only Date of Service: 02/24/24 The patient is an INPATIENT: No Changes since office visit: No Cold of Flu in the past 2 weeks, No New Medical Problems, No Changes in Medication and No Patient answered all questions The patient has been examined within 24 hours of the surgical procedure. The History & Physical has been completed within 30 days and I have reviewed it.: Yes Section B - Complete if H&P > 30 days Chief Complaint: Unspecified tear of unspecified meniscus, current Allergies: Allergies Allergy/AdvReac Type Severity Reaction Status Date / Time No Known Allergies Allergy Verified 02/24/24 08:45 Plan I have reviewed the history and physical and performed a pertinent physical examination on my patient. No changes have occurred unless specified. Time Spent With Patient Time: Total time managing care of this patient today ____ minutes.
--- NOTE | 2024-02-24 11:07 | PM.OP ---
Brief Operative Note Date of Service: 02/24/24 Pre-op diagnosis: Right knee lateral meniscus tear Post-op diagnosis: other (1) Right knee synovitis 2) right knee lateral meniscus tear) Procedure: Right knee synovectomy RIght knee lateral partial meniscectomy Surgeon: Odin Leon MD Anesthesia: GETA and local Was an Night Shift Manager used for this Procedure?: Yes Night Shift Manager: Lady Gonzalez Estimated blood loss (mL): 10 Tourniquet time (min): 25 IV fluids (mL): 500 Pathology: other (Synovium) Condition: stable Disposition: PACU
--- NOTE | 2024-02-24 11:10 | W.PM.OPN ---
Operative Note Operative Note Date of Service: 02/24/24 Narrative: Date of Service: 02/24/24 Pre-op diagnosis: Right knee lateral meniscus tear Post-op diagnosis: other (1) Right knee synovitis 2) right knee lateral meniscus tear) Procedure: Right knee synovectomy RIght knee lateral partial meniscectomy Surgeon: Odin Leon MD Anesthesia: GETA and local Was an Senior Web Applications Developer used for this Procedure?: Yes Senior Web Applications Developer: Lady Gonzalez Estimated blood loss (mL): 10 Tourniquet time (min): 25 IV fluids (mL): 500 Pathology: other (Synovium) Condition: stable Disposition: PACU Procedure in detail: Patient was brought to the operating room placed supine on the arthroscopic table and prepped and draped in standard sterile fashion. A time-out was called to identify proper site proper procedure proper surgeon and IV antibiotics per weight were administered. I began by exsanguinating the limb and insufflating tourniquet to 300 mm Hg. Then made a standard anterolateral stab incision. The knee was insufflated with water and 30 degree arthroscope was placed. There were normal cartilage surfaces throughout the knee. There was florid synovitis in the suprapatellar puch and anterior interval. I descended into the medial compartment where I made my medial portal under direct visualization. The medial meniscus was intact but there was synovitis extending onto the medial aspect of the MFC and surrounding the ACL. The lateral compartment and posterior to the PCL were also notable for synovitis. I used a grasper to sample the synovium from various sites and this was sent to pathology. The lateral meniscus was examined and the anterolateral meniscus was notable for a small degenerative tear. This was debrided with a shaver. The intermeniscal ligament was taught and synovitic and this was released. I then returned to the supra patellar space and debrided the synovium with a combination of cautery and shaver. After I completed a global synovectomy including the posterior capsule, I removed all instrumentation and closed the portals with skin glue. 25 mL of 2% Marcaine with epinephrine was injected into the joint and the surrounding soft tissues. Patient was then placed in sterile dressing extubated brought recovery room stable condition. There were no known complications.
[2024-02-24 11:20] VITALS: BP 115/70; PULSE 52; RESP 12; TEMP 36.6; O2SAT 100
[2024-02-24 11:25] VITALS: BP 126/86; PULSE 59; RESP 16; O2SAT 98
[2024-02-24 11:30] VITALS: BP 124/69; PULSE 61; RESP 16; O2SAT 95
[2024-02-24 11:35] VITALS: BP 124/72; PULSE 74; RESP 16; TEMP 36.6; O2SAT 95
== END 2024-02-24 11:50 | disposition home or self-care (01) ==
LOC: HO.SSS 08:36
PROVIDERS: PCP Physician Assistant; Visit Provider Orthopaedic Surgery
PROC: (CPT 29870; principal; 2024-02-24 10:20)
DX: S83.281A Other tear of lateral meniscus, current injury, right knee, initial encounter (principal); M67.261 Synovial hypertrophy, not elsewhere classified, right lower leg; X58.XXXA Exposure to other specified factors, initial encounter; M25.561 Pain in right knee; R73.09 Other abnormal glucose; E78.5 Hyperlipidemia, unspecified; F31.12 Bipolar disorder, current episode manic without psychotic features, moderate; Z87.891 Personal history of nicotine dependence; Z79.02 Long term (current) use of antithrombotics/antiplatelets; Z79.899 Other long term (current) drug therapy
CPT/HCPCS: 29876; 29881; 88304; 88305; J0131; J0171; J0690; J1100; J2250; J2405; J2704; J2795; J3010

== ENCOUNTER → 2024-02-24 08:35 | Outpatient (BNV) | payer MEDICARE, MEDICAID, SELFPAY | PROVIDERS: PCP Physician Assistant; Visit Provider Orthopaedic Surgery | DX: M65.161 Other infective (teno)synovitis, right knee (principal); S83.281A Other tear of lateral meniscus, current injury, right knee, initial encounter | CPT/HCPCS: 29876; 29881 ==

== ENCOUNTER 2024-03-02 13:27 | Outpatient (AMB) | payer MEDICARE, MEDICAID, SELFPAY ==
--- NOTE | 2024-03-02 13:35 | MHC.PC.OV ---
Vital Signs 03/02/24 13:38 Height 5 ft 7 in Weight 158 lb 2 oz BMI 24.8 BP 118/72 Blood Pressure Location Lt brachial Position Sitting Pulse 62 Pulse Source Pulse Oximeter Pulse Oximetry (%) 97 Oxygen Delivery Method Room Air Intake Visit Reasons: pe Intake Note: Patient is here today for a physical. 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 Accompanied by: Self / Same As Patient Allergies No Known Allergies Allergy (Verified 03/02/24 13:50) Medication List - Last Reconciled 03/02/24 by Liang Bautista PA-C atorvastatin 20 mg PO DAILY cetirizine (Zyrtec) 10 mg PO DAILY 90 days gabapentin 300 mg PO BEDTIME 30 days hydrocodone-acetaminophen 5-325 mg 1 tab PO Q8H PRN 7 days hydroxyzine pamoate 50 mg PO BID Tobacco use date assessed: 10/08/23 Dental Screening Dental Screen Date: 10/08/23 HPI pe HPI Details Patient is a 48-year-old male here today for an annual physical with past medical history significant for bipolar disorder, history of polysubstance use disorder, hyperlipidemia. .. Recently underwent right knee meniscal tear repair. He is doing fairly well and will be starting physical therapy next week. .. Hyperlipidemia: Patient continues on statin therapy without any side effect. Most recent lipid panel showing excellent control his total cholesterol and LDL. Impaired glucose metabolism: Most recent fasting blood sugars slightly elevated at 108. He will work on dietary modifications. He is somewhat inactive due to his right knee meniscal tear at this time. Colon cancer screening: Not interested in colon cancer screening at this time Vaccines: Up-to-date with flu vaccine, tetanus vaccine. Declines COVID vaccine [facility] Medical History Hyperlipidemia Bipolar disorder Surgical History History of surgery Family History Father CAD (coronary artery disease) Myocardial infarction Mother No problems noted. Brother Alive and well Social History (Updated 03/02/24 @ 14:01 by Liang Bautista PA-C) Housing: House Alcohol intake: former Year quit: 2020 Patient Tobacco Use Status: Former Tobacco user Quit Date: 2012 Tobacco use type: Cigarette e-Cigarette/Vaping Use: Never Used Second Hand Smoke Exposure: No service: No Current occupational status: disabled Current occupation: mental disabled. Cognitive needs: No Hearing needs: No Vision needs: No Questionnaire Thrive Questionnaire Date Thrive assessed: 10/08/23 MAGY-7 AMB Questionnaire MAGY-7 Date MAGY - 7 assessed: 10/08/23 Source: Developed by Drs. Jatin Lee, Jenniffer Leong, [employer] Andrew and colleagues, with an educational duy from [employer]. Review of Systems Const Denies body aches, Denies chills, Denies excessive sweating, Denies fatigue, Denies fever(s) and Denies headache(s) Eyes Denies blurry vision ENT Denies dysphagia, Denies vertigo, Denies dizziness, Denies headache(s), Denies hearing loss and Denies tinnitus Card Denies chest pain, Denies chest pain with activity, Denies syncope, Denies irregular heart rhythm and Denies dyspnea Resp Denies chest congestion, Denies cough, Denies hemoptysis, Denies dyspnea and Denies wheezing GI Denies abdominal pain, Denies melena, Denies hematochezia, Denies coffee ground emesis, Denies dysphagia, Denies diarrhea, Denies nausea and Denies vomiting Denies difficulty urinating, Denies dysuria, Denies urinary frequency, Denies urinary hesitancy and Denies urinary urgency Musc Denies arthralgias, Denies limited range of motion, Denies muscle cramps and Denies muscle weakness Skin/Breast Denies rash and Denies skin ulcer Neuro Denies Abnormal speech present, Denies confusion, Denies vertigo, Denies dizziness, Denies syncope, Denies headache(s), Denies memory loss and Denies seizure-like activity Psych Denies anxiety, Denies confusion, Denies depression, Denies memory loss, Denies panic attacks and Denies paranoia Endo Denies excessive sweating, Denies fatigue, Denies flushing, Denies polydipsia and Denies polyuria Aller/Immun Denies wheezing Physical exam (Primary Care) Vital Signs: Last Vital Signs Pulse 62 03/02/24 13:38 BP 118/72 03/02/24 13:38 Pulse Ox 97 03/02/24 13:38 Oxygen Delivery Method Room Air 03/02/24 13:38 BMI result Body Mass Index 24.8 Tobacco/Smoking Status: Tobacco use Status Tobacco use date assessed 10/08/23 03/02/24 13:35 Patient Tobacco Use Status Former Tobacco user 03/02/24 13:35 Tobacco use type Cigarette 03/02/24 13:35 e-Cigarette/Vaping Use Never Used 03/02/24 13:35 Thrive Assessment: Date of Thrive Assessment Date Thrive assessed 10/08/23 03/02/24 13:35 Const General: cooperative, comfortable, no acute distress, alert and awake; No confusion Orientation/consciousness: oriented to person, oriented to place, patient oriented x3 and No confusion HENMT Head: Yes normocephalic Ears: external ears normal and TM's normal bilaterally Face and sinus: No sinus tenderness Mouth: Normal oral and palatal mucosa present and tongue normal Teeth and gingiva: dentition normal and gingiva normal Throat: Yes posterior oropharynx normal, Yes tonsils normal and Yes uvula midline Eyes Conjunctivae: conjunctivae normal Sclerae: sclerae normal Pupils: Equal, round and reactive pupils present EOM: EOMs intact bilaterally Direct Ophthalmoscopy: No no photophobia Neck Neck: Yes no lymphadenopathy, No tender and Yes no JVD Thyroid: Thyroid normal Carotids: no bruits Chest Chest palpation & inspection: no tenderness Resp Effort & Inspection: normal respiratory effort, no audible wheezes, not labored and no stridor Auscultation: no crackles, no rales, no rhonchi and no wheezes Cardio Jugular venous distension: no JVD Rate: regular rate, not bradycardic and not tachycardic Rhythm: regular rhythm Bruits: no carotid bruits Peripheral pulses: Peripheral pulses 2+ throughout GI Inspection: Yes normal to inspection, No abdominal wall ecchymosis and No visible herniation Palpation (GI): Soft to palpation, nontender, no guarding, not rigid and No hepatosplenomegaly present Auscultation: normoactive bowel sounds General: Yes no CVA tenderness Back/Spine/Pelvis Back: no CVA tenderness and No back tenderness Cervical Spine: cervical ROM normal Thoracic/Lumbar Spine: thoracic and lumbar spine normal to inspection, straight leg raise negative bilaterally, No thoraco-lumbar ROM limited and No lumbar spinal tenderness Skin Lesions: no lesions Rashes: no rashes Wounds: no wounds Neuro General: oriented to person, oriented to place, patient oriented x3, CN's II-XI intact bilaterally and No confusion Cranial nerves: Yes Equal, round and reactive pupils present and Yes Normal accommodation reflex present Cognition (Neuro): normal cognition Speech: No Abnormal speech present Gait exam (Neuro): Normal gait present Motor exam (neuro): 5/5 motor strength present throughout Extrem Right upper extremity: full ROM; no cyanosis Left upper extremity: full ROM; no cyanosis Right lower extremity: no edema Left lower extremity: no edema Psych Appearance: grossly normal Mental Status: mental status grossly normal Affect: normal affect Attitude: cooperative Thought process: Normal thought process present Assessment and Plan Assessment & Plan (1) HLD (hyperlipidemia): Code(s): E78.5 - Hyperlipidemia, unspecified Qualifiers: Hyperlipidemia type: mixed hyperlipidemia Qualified Code(s): E78.2 - Mixed hyperlipidemia Plan: Continues on statin therapy without any significant side effect. Most recent fasting lipid showing excellent control of his total cholesterol and LDL. Goal LDL to remain below 160 (2) Bipolar 1 disorder, manic, moderate: Code(s): F31.12 - Bipolar disorder, current episode manic without psychotic features, moderate Plan: Patient continues to follow a mental health therapist and a psychiatrist whom manages mental health medications. Has not had any recent manic episodes. Continues to be sober from alcohol and street drugs. He feels stable for a mental health point of view. (3) Impaired glucose metabolism: Code(s): R73.09 - Other abnormal glucose Plan: Most recent fasting blood sugar at 108. Will continue to implement dietary modifications. Orders: Orders Comprehensive [place]. Panel Fast Today R73.09 - Other abnormal glucose Lipid Panel Today E78.2 - Mixed hyperlipidemia Hemoglobin A1c Today R73.09 - Other abnormal glucose Medications: Discontinued loratadine Discontinued Reason: Doctor's Order 10 mg PO DAILY 30 tabs 3RF Patient Instructions: Goal: Fasting blood sugar to be below 100 Barriers: Adherence to physical activity and healthy eating habits Coding Level of Care Code Complex EM visit Add On G2211 Diagnoses Mixed hyperlipidemia E78.2 Hyperlipidemia type: mixed hyperlipidemia Bipolar 1 disorder, manic, moderate F31.12 Impaired glucose metabolism R73.09
[2024-03-02 13:38] VITALS: BP 118/72; PULSE 62; O2SAT 97; BMI 24.8
== END 2024-03-02 14:16 | disposition home or self-care (01) ==
PROVIDERS: PCP Physician Assistant; Visit Provider Physician Assistant
DX: Z00.00 Encounter for general adult medical examination without abnormal findings (principal); E78.2 Mixed hyperlipidemia; F31.12 Bipolar disorder, current episode manic without psychotic features, moderate; R73.09 Other abnormal glucose
CPT/HCPCS: 99396

== ENCOUNTER 2024-03-03 12:34 | Outpatient (AMB) | payer MEDICARE, MEDICAID, SELFPAY ==
--- NOTE | 2024-03-03 12:35 | MHC.OFFVIS ---
Vital Signs 03/03/24 12:42 Height 5 ft 7 in Weight 158 lb BMI 24.7 Intake Visit Reasons: PO RT Knee 02/24/24 NE Intake Note: Adal is a 48 year old amle who presents today for a post op appointment s/p right knee 02/24/24 NE. Patient reports he is doing well, he states that his pain is getting over time. He was wondering if he could have some more pain medication if possible. Allergies No Known Allergies Allergy (Verified 03/03/24 12:40) Medication List - Last Reconciled 03/03/24 by Jessica Zarate PA-C atorvastatin 20 mg PO DAILY cetirizine (Zyrtec) 10 mg PO DAILY 90 days gabapentin 300 mg PO BEDTIME 30 days hydrocodone-acetaminophen 5-325 mg 1 tab PO Q8H PRN 7 days hydroxyzine pamoate 50 mg PO BID HPI HPI PO RT Knee 02/24/24 NE: Details: 48-year-old male who returns to the office today for post-op right knee , 02/24/[address] Leon. He states his pain is getting over time however he is doing well overall. He is requesting for a refill of his pain medication. He has no other concerns today. [facility] Medical History Hyperlipidemia Bipolar disorder Surgical History History of surgery Family History Father CAD (coronary artery disease) Myocardial infarction Mother No problems noted. Brother Alive and well Social History (Updated 03/02/24 @ 14:01 by Liang Bautista PA-C) Housing: House Alcohol intake: former Year quit: 2020 Patient Tobacco Use Status: Former Tobacco user Tobacco use type: Cigarette e-Cigarette/Vaping Use: Never Used Second Hand Smoke Exposure: No service: No Current occupational status: disabled Current occupation: mental disabled. Cognitive needs: No Hearing needs: No Vision needs: No Review of Systems Const All systems reviewed & are unremarkable except as noted in HPI and below Physical Exam Vital Signs: BMI result Body Mass Index 24.7 Extrem Other: Right knee: Incision clean, dry and intact. No erythema or joint effusion. ROM is 0-110 degrees. Calf supple, nontender. NVI. Results Reviewed Results Reviewed: Brief Operative Note Date of Service: 02/24/24 Pre-op diagnosis: Right knee lateral meniscus tear Post-op diagnosis: other (1) Right knee synovitis 2) right knee lateral meniscus tear) Procedure: Right knee synovectomy RIght knee lateral partial meniscectomy Surgeon: Odin Leon MD Assessment & Plan Assessment & Plan (1) Acute meniscal tear of knee: Code(s): S83.209A - Unspecified tear of unspecified meniscus, current injury, unspecified knee, initial encounter Category: Medical Qualifiers: Encounter type: subsequent encounter Laterality: right Qualified Code(s): S83.206D - Unspecified tear of unspecified meniscus, current injury, right knee, subsequent encounter Plan He will begin physical therapy next week to work on ROM, quad strengthening and increase activity as tolerated, he is WBAT. I did refill his Vicodin 1 tab a day for 5 days then get down with Tylenol or ibuprofen. He will see me back in [address] Leon, sooner if needed. Orders: Orders PT Evaluation and Treatment 02/24/24 M23.91 - Unspecified internal derangement of right knee, S83.206D - Unspecified tear of unspecified meniscus, current injury, right knee, subsequent encounter Medications: Changed From hydrocodone-acetaminophen 5-325 mg Partial Fill upon patient request. 1 tab PO Q8H 7 days PRN 21 tabs 0RF pain (scale score 4-6) To hydrocodone-acetaminophen 5-325 mg Partial Fill upon patient request. 1 tab PO ONCE PRN 5 tabs 0RF pain (scale score 4-6) 5 days Patient Instructions: Scribed for Jessica Zarate PA-C, by Manjeet Thorne emergency medical technician/driver, on 03/03/2024 at 12:30 PM EST.? I, Jessica Zarate PA-C, have personally reviewed and agree with the information entered by the scribe. Coding Level of Care Code Global (39014) Diagnoses Acute meniscal tear of right knee, subsequent encounter S83.206D Encounter type: subsequent encounter Laterality: right
[2024-03-03 12:42] VITALS: BMI 24.7
== END 2024-03-03 12:57 | disposition home or self-care (01) ==
PROVIDERS: PCP Physician Assistant; Visit Provider Physician Assistant
DX: S83.206D Unspecified tear of unspecified meniscus, current injury, right knee, subsequent encounter (principal)
CPT/HCPCS: 99024

== ENCOUNTER → 2024-03-03 12:34 | Outpatient (BNVA) | payer MEDICARE, MEDICAID, SELFPAY | PROVIDERS: PCP Physician Assistant; Visit Provider Physician Assistant | DX: S83.281D Other tear of lateral meniscus, current injury, right knee, subsequent encounter (principal); X58.XXXD Exposure to other specified factors, subsequent encounter | CPT/HCPCS: 99212 ==

== ENCOUNTER 2024-03-31 08:34 | Outpatient (AMB) | payer MEDICARE, MEDICAID, SELFPAY ==
--- NOTE | 2024-03-31 08:35 | MHC.OFFVIS ---
Intake Visit Reasons: PO RT Knee 02/24/24 NE Intake Note: Adal is a 48 year old male who presents today for a post operative follow up 5 weeks s/p Right Knee - Synovectomy & Lateral partial meniscectomy 02/24/2024. He is WBAT and reports his knee is feeling good. Last refill of Vicodin was given on 03/03/24 Allergies No Known Allergies Allergy (Verified 03/31/24 08:37) Medication List - Last Reconciled 03/31/24 by Millicent Maya RN atorvastatin 20 mg PO DAILY cetirizine (Zyrtec) 10 mg PO DAILY 90 days gabapentin 300 mg PO BEDTIME 30 days hydrocodone-acetaminophen 5-325 mg 1 tab PO ONCE PRN 5 days hydroxyzine pamoate 50 mg PO BID HPI HPI PO RT Knee 02/24/24 NE: Details: Doing well with no complaints. Compliant with PT [facility] Medical History Hyperlipidemia Bipolar disorder Surgical History History of surgery Family History Father CAD (coronary artery disease) Myocardial infarction Mother No problems noted. Brother Alive and well Social History (Updated 03/02/24 @ 14:01 by Liang Bautista PA-C) Housing: House Alcohol intake: former Year quit: 2020 Patient Tobacco Use Status: Former Tobacco user Tobacco use type: Cigarette e-Cigarette/Vaping Use: Never Used Second Hand Smoke Exposure: No service: No Current occupational status: disabled Current occupation: mental disabled. Cognitive needs: No Hearing needs: No Vision needs: No Physical Exam Extrem Other: portals c/d/i trace effusion Mild TTP anterolateral portal Assessment & Plan Assessment & Plan (1) Acute meniscal tear of knee: Code(s): S83.209A - Unspecified tear of unspecified meniscus, current injury, unspecified knee, initial encounter Category: Medical Qualifiers: Encounter type: subsequent encounter Laterality: right Qualified Code(s): S83.206D - Unspecified tear of unspecified meniscus, current injury, right knee, subsequent encounter Plan: Doing well COntinue anti inflammatoried f/u 2 months Coding Level of Care Code Global (16170) Diagnoses Acute meniscal tear of right knee, subsequent encounter S83.206D Encounter type: subsequent encounter Laterality: right
== END 2024-03-31 09:30 | disposition home or self-care (01) ==
LOC: HO.HOS 08:34
PROVIDERS: PCP Physician Assistant; Visit Provider Orthopaedic Surgery
DX: S83.206D Unspecified tear of unspecified meniscus, current injury, right knee, subsequent encounter (principal)
CPT/HCPCS: 99024

== ENCOUNTER → 2024-03-31 08:34 | Outpatient (BNVA) | payer MEDICARE, MEDICAID, SELFPAY | PROVIDERS: PCP Physician Assistant; Visit Provider Orthopaedic Surgery | DX: Z47.89 Encounter for other orthopedic aftercare (principal); S83.206D Unspecified tear of unspecified meniscus, current injury, right knee, subsequent encounter | CPT/HCPCS: 99212 ==

== ENCOUNTER 2024-04-01 09:00 | Outpatient (RCR) | payer MEDICARE, MEDICAID, SELFPAY ==
--- NOTE | 2024-03-08 12:20 | MHC.PT.EP ---
[facility] [place] Office [place] Office [place] Office [address] Bob Joyner [address] [phone] F: [phone] F: [phone] F: [phone] F: [phone] Physical Therapy Plan of Care Date of Evaluation: 03/07/24 Date of Surgery: 02/24/24 Diagnosis: SCRIPT: M23.91: Unspecified internal derangement of right knee. S83.206D Unspecified tear of unspecified menisus, current injurty, right knee, subsequent encounter, medial meniscal repair 02/24/24 with NE, signed by Lady Gonzalez PA-C 02/24/24 Operative report: Operative NoteOperative Note Date of Service: 02/24/24 Narrative: Date of Service: 02/24/24 Pre-op diagnosis: Right knee lateral meniscus tear Post-op diagnosis: other (1) Right knee synovitis 2) right knee lateral meniscus tear)Procedure: Right knee synovectomyRIght knee lateral partial meniscectomy Surgeon: Odin Leon MD Assessment: Pt is a RHD 48 y/o male who states his primary hobby/passion is skateboarding. PMH significant for TBI 1997 (hx of suicide attempt), history of bipolar disorder, hx ETOH/substance use, pt states history of being sober for 3 years currently attending AA meetings, and high cholesterol. Pt is S/p: Operative report:NoteOperative Note Date of Service: 02/24/24Narrative: Date of Service: 02/24/24Pre-op diagnosis: Right knee lateral meniscus tear, Post-op diagnosis: other (1) Right knee synovitis 2) right knee lateral meniscus tear)Procedure: , Right knee synovectomy RIght knee lateral partial meniscectomy Surgeon: Odin Leon MD Pt is s/p presents to the office with no AD, reports has not been using any crutches since surgery (post op DC instructions: Keep bandage clean, dry, and intactElevateCrutches until able to straight leg raiseIce 20 mins every hourOK to shower 3 days post op-no bath or hot tubs, Call orthopedics if any questions or concerns. Pt states he has been skateboarding and biking daily (pumping and pushing with his R LE, standing on his skate board on his left). Pt had post op appt on 03/03/24. Pt presents with 3 steri-strip, star pattern over medial and lateral aspect of knee. Has been icing daily several times. States he has not has any issue with stairs, can consistently perform foot over foot pattern with mild sx. SCRIPT dated 02/24/24: CONFLICTING DIAGNOSIS M23.91: Unspecified internal derangement of right knee. S83.206D Unspecified tear of unspecified menisus, current injurty, right knee, subsequent encounter, medial meniscal repair 02/24/24 with NE, signed by Lady Gonzalez PA-C 02/24/24 When referencing script conflicting information of Operative report: Operative Note Operative Note, Date of Service: 02/24/24, Narrative: Date of Service: 02/24/24 Pre-op diagnosis: Right knee lateral meniscus tear Post-op diagnosis: other (1) Right knee synovitis 2) right knee lateral meniscus tear)Procedure: Right knee synovectomy RIght knee lateral partial meniscectomy Surgeon: Odin Leon MD Therapist called and spoke with Kar[place] [facility] [place] to [place] report to patient about current status and patient skateboarding. Pt exhibits mild end range deficit and ROM (+3 to 110). Pt admits has been icing his knee and was educated in icing/elevating. Pt appears to lack understanding that he should not be skateboarding at this time. Pt will be seen in PT twice weekly for a few weeks to address end range of motion, strength, and edema deficits. Overall patient appears to be moving well. Frequency and Duration: The patient will be seen 2x/week x 4 weeks Short Term Goals: 1. AROM R knee flexion to 120 degrees. 2. Pt will demonstrate good SLR. 3. Pt will demonstrate good eccentric control during functional transfers. 4. I with self care/HEP/joint protection measures. Flexible Nanny Goals: 1. Pt AROM R knee 0 -130 degrees. 2. Demonstrate symmetrical squat with good dynamic balance. 3. Reciprocal stair negotiation from 8inch step with single use of rail. 4. SLS 20 seconds on R LE. 5. Improve LEFS score by 5 points. Treatment Plan: Modalities to reduce pain, spasms and effusion. Manual therapy to restore motion and function. Therapeutic exercise to improve strength and flexibility. Neuromuscular re-education for posture and balance. Therapeutic activities to return to functional activities of daily living. Electronically signed by: Jayne Schmidt PT, DPT Please sign and return to therapist. Thank you for your referral.
== END 2024-10-26 11:36 | disposition home or self-care (01) ==
LOC: HO.PTWFD 09:00
PROVIDERS: PCP Physician Assistant; Visit Provider Physician Assistant
DX: M23.91 Unspecified internal derangement of right knee (principal); S83.206D Unspecified tear of unspecified meniscus, current injury, right knee, subsequent encounter
CPT/HCPCS: 97110; 97140; 97161; 97530; 97535

== ENCOUNTER 2024-04-25 12:58 | Emergency (ER) | payer MEDICARE, MEDICAID, SELFPAY ==
[2024-04-25 13:13] VITALS: BP 117/75; PULSE 62; RESP 18; TEMP 37; O2SAT 97; BMI 25.7
--- NOTE | 2024-04-25 13:17 | ED_ITS ---
HPI - Wound/Laceration General Chief Complaint: Wound/Laceration Stated Complaint: Finger lac Time Seen by Provider: 04/25/24 13:55 Source: patient Mode of arrival: ambulatory Limitations: no limitations History of Present Illness ED Provider: della SANDRA narrative: Patient is a 48-year-old right-hand dominant male presenting to the emergency department with complaint of laceration to distal tip of left 3rd finger. Patient states that he accidentally cut his finger with hedge clippers prior to arrival. Unsure last Tdap. He reports knee surgery 1 month ago but is unsure if Tdap was at updated at that time. Denies any numbness or tingling. Denies any decreased range of motion. Onset (ago): hour(s) Place: outdoors Context: accidental Associated symptoms: none Treatments prior to arrival: bandage Related Data Home Medications ?Medication ?Instructions ?Recorded ?Confirmed hydroxyzine pamoate 25 mg capsule 50 mg PO BID 03/02/24 03/31/24 Previous Rx's ?Medication ?Instructions ?Recorded cetirizine 10 mg tablet (Zyrtec) 10 mg PO DAILY 90 days #90 tabs 02/19/23 hydrocodone 5 mg-acetaminophen 325 1 tab PO ONCE PRN pain (scale 03/03/24 mg tablet score 4-6) 5 days #5 tabs atorvastatin 20 mg tablet 20 mg PO DAILY for cholesterol #90 04/08/24 tabs gabapentin 300 mg capsule 300 mg PO BEDTIME 30 days #30 caps 04/08/24 Allergies Allergy/AdvReac Type Severity Reaction Status Date / Time No Known Allergies Allergy Verified 04/25/24 13:17 Review of Systems Review of Systems: As per HPI. Yes all other systems are reviewed and are negative Constitutional: Constitutional: Reports as per HPI [facility] Past Medical History Medical History Hyperlipidemia Bipolar disorder Surgical History History of surgery Family History Family History Father CAD (coronary artery disease) Myocardial infarction Mother No problems noted. Brother Alive and well Social History Social History (Updated 03/02/24 @ 14:01 by Liang Bautista PA-C) Housing: House Alcohol intake: former Year quit: 2020 Patient Tobacco Use Status: Former Tobacco user Tobacco use type: Cigarette e-Cigarette/Vaping Use: Never Used Second Hand Smoke Exposure: No Advance Directives: No Advance Directives Information Provided: No Do you have a plan to hurt others: No Plan service: No Current occupational status: disabled Current occupation: mental disabled. Cognitive needs: No Hearing needs: No Vision needs: No Physical Exam Vital Signs: Vital Signs: Last Vital Signs Temp 98.5 F 04/25/24 14:00 Pulse 58 04/25/24 14:00 Resp 19 04/25/24 14:00 BP 114/74 04/25/24 14:00 Pulse Ox 95 04/25/24 14:00 O2 Del Method Room Air 04/25/24 14:00 BMI result Body Mass Index 25.7 Vital signs have been reviewed and appear to be correct. Blood pressure normal. Heart rate normal. Respiratory rate normal. Temperature normal. Oxygen saturation normal. Const: General: cooperative, healthy appearing and no acute distress Orientation/consciousness: oriented to person, oriented to place, oriented to time and patient oriented x3 Limitations: no limitations HEENT: Head: Yes normocephalic and Yes atraumatic Ears: external ears normal General nose exam: Normal external nose present Face and sinus: Yes face symmetric Mouth: oropharynx normal and moist mucous membranes Throat: Yes uvula midline Eyes: Pupils: Equal, round and reactive pupils present Neck: Neck: Yes normal visual inspection and Yes supple Resp: Effort & Inspection: normal respiratory effort and able to speak in complete sentences Auscultation: clear to auscultation bilaterally Cardio: Rate: regular rate Rhythm: regular rhythm Heart sounds: S1 normal heart sound present and S2 normal heart sound present GI: Palpation (GI): Soft to palpation and nontender Auscultation: normoactive bowel sounds : General: Yes no CVA tenderness Back/Spine/Pelvis: Back: no CVA tenderness Skin: General skin exam: elasticity normal and turgor normal Neuro: General: oriented to person, oriented to place, oriented to time, patient oriented x3, moves all extremities, no focal motor deficits and CN's II- XI intact bilaterally Cranial nerves: Yes Equal, round and reactive pupils present Cognition (Neuro): normal cognition Extrem: General: Yes full ROM, Yes normal exam except as noted, Yes no pedal edema and Yes no calf tenderness Left upper extremity: hand Details: laceration 3rd digit palmar aspect distal Details: linear (1cm, no active bleeding), superficial, with motor nerve function intact and with sensation intact Psych: Mental Status: mental status grossly normal Affect: normal affect Thought process: Normal thought process present Course Course Course Narrative: This is an RME: Additional HPI, ROS, PE not included below will be deferred to primary provider. RME assessment and note performed by: Neela Woodson PA-C This is a 48 y/o M who presents to the ER with complaints of laceration to left third digit. He was trimming hedges this afternoon and accidentally lacerated his finger. Unsure of tdap status. Plan: wound repair Medications Administered Discontinued Medications Generic Name Dose Route Start Last Admin Trade Name Freq PRN Reason Stop Dose Admin Bacitracin 1 appl 04/25/24 14:51 04/25/24 15:16 Bacitracin Oint 0.9 Gm Packet TOPICAL 04/25/24 14:52 1 appl ONCE ONE Administration Protocol Diphtheria/Tetanus/Acell Pertussis 0.5 ml 04/25/24 14:41 04/25/24 15:14 Diphth,Pertus(Acell),Tet Adult 0.5 Ml Syringe IM 04/25/24 14:42 0.5 ml .ONCE ONE Administration Lidocaine HCl 5 ml 04/25/24 14:41 04/25/24 15:17 Lidocaine Hcl 1 % Mpf 5 Ml Vial INFILTRATI 04/25/24 14:42 5 ml ONCE ONE Administration Medical Decision Making Medical Decision Making [facility] Narrative: Patient is a 48-year-old right-hand dominant male presenting to the emergency department with complaint of laceration to distal tip of left 3rd finger. On exam patient is awake, A+Ox3, VS WNL, afebrile, normal neurological exam without focal deficits, physical exam findings as above. Given reported symptoms and physical exam findings, initial differential includes laceration. No evidence of tendon injury on physical exam. Wound cleansed thoroughly and repaired as per procedure note. Tdap updated in the emergency department. Wound care and return precautions discussed at bedside. Advised patient to have sutures removed in 7-10 days. Follow up with PCP. Patient verbalized understanding of and agreement with plan. Differential Diagnosis Differential Diagnoses: The differential diagnosis associated with the presentation includes As per MDM. External Record Review External record reviewed: Inpatient record, Office record and Outpatient record Procedures Laceration Laceration 1: Site: hand Side (If applicable): left Size (cm): 1 Description: linear Depth: simple, single layer Local Anesthetic: lidocaine 1% Amount of anesthesia used (mL): 2 Pre-repair: wound explored, irrigated extensively and deep structures intact Skin layer closed with: other (prolene) Size (cm): 4-0 Number of sutures: 3 Technique: simple, interrupted Discharge Plan Discharge Clinical Impression: Laceration of finger of left hand Qualifiers: Encounter type: initial encounter Finger: middle finger Damage to nail status: without damage Foreign body presence: without foreign body Qualified Code(s): S61.213A - Laceration without foreign body of left middle finger without damage to nail, initial encounter Patient Disposition: Home, Self-Care Instructions: Care For Your Stitches (DC), Finger Laceration (ED), Stitches Removal (ED) Additional Instructions: You have been evaluated in the emergency department today for a laceration to your finger. Your laceration was repaired in the emergency department with sutures. Please keep the area surrounding the laceration clean and dry and keep dressing in place for the next 24 hours. After that please change the dressing and assess the wound daily. Do not submerge your wound under water until sutures have been removed and wound has fully healed (no swimming). Keep the area out of direct sunlight for the next 6 months to help prevent scarring. You should have the sutures removed in 7-10 days. If you develop fever, redness, swelling at the site of your laceration, or thick yellow drainage please come back to the ER for a wound check. Prescriptions: No Action cetirizine [Zyrtec] 10 mg tablet 10 mg PO DAILY 90 Days Qty: 90 1RF atorvastatin 20 mg tablet 20 mg PO DAILY Qty: 90 1RF gabapentin 300 mg capsule 300 mg PO BEDTIME 30 Days Qty: 30 3RF hydroxyzine pamoate 25 mg capsule 50 mg PO BID hydrocodone-acetaminophen 5-325 mg tablet 1 tab PO ONCE PRN (Reason: pain (scale score 4-6)) 5 Days Qty: 5 0RF Rx Instructions: Partial Fill upon patient request. Print Language: Jordanian
[2024-04-25 14:00] VITALS: BP 114/74; PULSE 58; RESP 19; TEMP 36.9; O2SAT 95
[2024-04-25] MEDS: Diphth,Pertus(ACell),Tet Adult 0.5 ML SYRINGE IM (15:14)
[2024-04-25] MEDS: Bacitracin Oint 0.9 GM PACKET 1 APPL TOPICAL (15:16)
[2024-04-25] MEDS: Lidocaine HCl 1 % MPF 5 ML VIAL INFILTRATI (15:17)
[2024-04-25 15:39] VITALS: BP 114/74; PULSE 58; RESP 19; TEMP 36.9; O2SAT 95
== END 2024-04-25 15:39 | disposition home or self-care (01) ==
PROVIDERS: Emergency Provider Emergency Medicine
DX: S61.213A Laceration without foreign body of left middle finger without damage to nail, initial encounter (principal); M79.642 Pain in left hand; W29.3XXA Contact with powered garden and outdoor hand tools and machinery, initial encounter; Y93.H2 Activity, gardening and landscaping; Y92.096 Garden or yard of other non-institutional residence as the place of occurrence of the external cause; Y99.8 Other external cause status; Z23 Encounter for immunization; Z87.891 Personal history of nicotine dependence
CPT/HCPCS: 12011; 90471; 90715; 99283; 99284

== ENCOUNTER 2024-06-28 11:33 | Outpatient (AMB) | payer MEDICARE, MEDICAID, SELFPAY ==
[2024-06-28 11:12] VITALS: BMI 25.5
--- NOTE | 2024-06-28 11:38 | A.OFFVIS_ITS ---
VS Expanded 06/28/24 11:12 07/04/24 11:14 Height 5 ft 8 in 5 ft 8 in Weight 167 lb 12.5 oz 168 lb BMI 25.5 25.5 Intake Visit Reasons: Mixed hyperlipidemia/CONFIRMED Allergies No Known Allergies Allergy (Verified 04/25/24 13:17) Nutrition Presentation Details: Pt presents for MNT for mixed hyperlipidemia Pt reports typically having meals outside of home, often choosing fried foods but he has interest in learning to have home made meals. Hx of alcohol use and reports he has been sober for 3 yrs . Participates in AA BS Monitoring Most Recent Diabetes Results: Cholesterol 150 mg/dL (<200) 02/05/24 HDL Cholesterol 51 mg/dL (>40) 02/05/24 Triglycerides 49 mg/dL (<150) 02/05/24 Creatinine 0.96 mg/dL (0.5-1.4) 02/05/24 Blood Urea Nitrogen 13 mg/dL (9-16) 02/05/24 Sodium 138 mmol/L (135-145) 02/05/24 Potassium 4.2 mmol/L (3.3-5.1) 02/05/24 Chloride 104 mmol/L (96-108) 02/05/24 Carbon Dioxide 24 mmol/L (22-29) 02/05/24 Calcium 9.9 mg/dL (8.4-10.2) 02/05/24 AST 22 U/L (5-37) 02/05/24 ALT 21 U/L (0-40) 02/05/24 Total Protein 7.7 g/dL (6.5-8.0) 02/05/24 Albumin 4.1 g/dL (3.5-5.0) 02/05/24 WTG-Otzjwhm-Ab.Jeor Equation Height: 5 ft 8 in Weight: 168 lb Resting Metabolic Rate: 1614.53 Calculated Activity Level: Mild Activity Calories Needed to Maintain Weight: 2219.98 Diagnosis Nutrition problem #1: food nutri know defi As related to (etiology) #1: diagnosis As evidenced by (sign/symptom) #1: knowledge deficit of diet [facility] Medical History Hyperlipidemia Bipolar disorder Surgical History History of surgery Family History Father CAD (coronary artery disease) Myocardial infarction Mother No problems noted. Brother Alive and well Social History (Updated 03/02/24 @ 14:01 by Liang Bautista PA-C) Housing: House Alcohol intake: former Year quit: 2020 Patient Tobacco Use Status: Former Tobacco user Tobacco use type: Cigarette e-Cigarette/Vaping Use: Never Used Second Hand Smoke Exposure: No service: No Current occupational status: disabled Current occupation: mental disabled. Cognitive needs: No Hearing needs: No Vision needs: No Assessment & Plan Assessment & Plan (1) HLD (hyperlipidemia): Code(s): E78.5 - Hyperlipidemia, unspecified Category: Medical Qualifiers: Hyperlipidemia type: mixed hyperlipidemia Qualified Code(s): E78.2 - Mixed hyperlipidemia Plan: Wt: 76 Kg ( 06/2024 ) Est kcal needs as per MSJ: 1900 (40% carb, 30% protein/fat) Est fluid needs as per 25-30 ml/d: 2300 Est prot per day as per 1 g/kg bw: 76 Recommend fiber intake : 8-10 g per day and gradually increase to 25-28 g per day for women and 35-38 g for men or as tolerated Recommend sodium intake per day : less than 2300 mg Educated patient on: ( R = reviewed V = verbalizes understanding N/R = needs review N/A = not applicable * Food sources of carbohydrate, adequate serving sizes and its role in various health conditions: NR * Differences between complex carbohydrates a simple carbohydrates, role of fiber in diet: R * Lean protein sources of foods: R * Differences between types of fats and role in diet (mono on saturated fat fatty acids, saturated fatty acids, trans fats): R * Food sources of sodium in salt and healthy modifications for heart health in kidney health: R V R/V * Vitamins and minerals: R V N/R * Healthy plate method concept: R V N/R * Physical activity: Benefits a precaution: R V N/R * Hypoglycemia protocol (rule of 15): R V N/R * Patient Instructions: Have tuna fish with oil lettuce/tomato/spinach at least twice a week in place of fried meat see list of meal ideas , working on choosing less fried foods Coding Level of Care Code Nutr Indiv Intake (52714) Diagnoses Mixed hyperlipidemia E78.2 Hyperlipidemia type: mixed hyperlipidemia Time Spent (min) 30
[2024-07-04 11:14] VITALS: BMI 25.5
== END 2024-06-28 12:01 | disposition home or self-care (01) ==
PROVIDERS: Visit Provider Dietitian, Registered
DX: E78.2 Mixed hyperlipidemia (principal)

== ENCOUNTER → 2024-06-28 11:33 | Outpatient (BNVA) | payer MEDICARE, MEDICAID, SELFPAY | PROVIDERS: Visit Provider Dietitian, Registered | DX: E78.2 Mixed hyperlipidemia (principal) | CPT/HCPCS: 97802 ==

== ENCOUNTER 2024-07-21 09:25 | Outpatient (AMB) | payer MEDICARE, MEDICAID, SELFPAY ==
--- NOTE | 2024-07-21 09:28 | A.OFFVIS_ITS ---
Intake Visit Reasons: OV Rt knee pain Intake Note: Adal is a 48 year old male who presents today for a post operative follow up 5 weeks s/p Right Knee - Synovectomy & Lateral partial meniscectomy 02/24/2024. Patient reports that he has continued pain and swelling of the right knee. Patient reports that he is having pain/pressure in the posterior aspect of the right knee, these symptoms are only present prior to bowel movement. He reports that the symptoms subside after bowel movement and goes on to explain that his knee pain is more of an indicator of needing to use the bathroom than the sensation in the intestine. Allergies No Known Allergies Allergy (Verified 07/21/24 09:30) HPI HPI OV Rt knee pain: Details: Adal is a 48 year old male who presents today for a post operative follow up 5 weeks s/p Right Knee - Synovectomy & Lateral partial meniscectomy 02/24/2024. Patient reports that he has continued pain and swelling of the right knee. Patient reports that he is having pain/pressure in the posterior aspect of the right knee, these symptoms are only present prior to bowel movement. He reports that the symptoms subside after bowel movement. [facility] Medical History Hyperlipidemia Bipolar disorder Surgical History History of surgery Family History Father CAD (coronary artery disease) Myocardial infarction Mother No problems noted. Brother Alive and well Social History (Updated 03/02/24 @ 14:01 by Liang Bautista PA-C) Housing: House Alcohol intake: former Year quit: 2020 Patient Tobacco Use Status: Former Tobacco user Tobacco use type: Cigarette e-Cigarette/Vaping Use: Never Used Second Hand Smoke Exposure: No service: No Current occupational status: disabled Current occupation: mental disabled. Cognitive needs: No Hearing needs: No Vision needs: No Physical Exam Extrem Other: Full range of motion and normal gait mechanics. Mild effusion with mild tenderness in the popliteal fossa Assessment & Plan Assessment & Plan (1) Knee effusion, right: Code(s): M25.461 - Effusion, right knee Category: Medical Plan: Intermittent right knee effusion associated with activity. Continue activity as tolerated. NSAIDs and compression as tolerated. Follow up p.r.n.. Coding Level of Care Code Est Pt Level 3 (08353) Diagnoses Knee effusion, right M25.461
== END 2024-07-21 10:16 | disposition home or self-care (01) ==
PROVIDERS: Visit Provider Orthopaedic Surgery
DX: M25.461 Effusion, right knee (principal)
CPT/HCPCS: 99213

== ENCOUNTER → 2024-07-21 09:25 | Outpatient (BNVA) | payer MEDICARE, MEDICAID, SELFPAY | PROVIDERS: Visit Provider Orthopaedic Surgery | DX: M25.461 Effusion, right knee (principal); M25.561 Pain in right knee | CPT/HCPCS: 99212 ==

== ENCOUNTER 2024-08-09 11:33 | Outpatient (AMB) | payer MEDICARE, MEDICAID, SELFPAY ==
[2024-08-09 11:38] VITALS: BMI 25.7
--- NOTE | 2024-08-09 11:38 | A.OFFVIS_ITS ---
VS Expanded 08/09/24 11:38 Height 5 ft 8 in Weight 169 lb 5.04 oz BMI 25.7 Intake Visit Reasons: High Chol/CONFIRMED Allergies No Known Allergies Allergy (Verified 07/21/24 09:30) Nutrition Presentation Details: Pt presents for MNT f/u for hyperlipdemia Pt reports making home made meals, incorporating fish at least twice a week (tuna sand with urrutia/lettuce/tomato , glass of milk in place of fried food meal BS Monitoring Most Recent Diabetes Results: No Data to Display [facility] Medical History Hyperlipidemia Bipolar disorder Surgical History History of surgery Family History Father CAD (coronary artery disease) Myocardial infarction Mother No problems noted. Brother Alive and well Social History (Updated 03/02/24 @ 14:01 by Liang Bautista PA-C) Housing: House Alcohol intake: former Year quit: 2020 Patient Tobacco Use Status: Former Tobacco user Tobacco use type: Cigarette e-Cigarette/Vaping Use: Never Used Second Hand Smoke Exposure: No service: No Current occupational status: disabled Current occupation: mental disabled. Cognitive needs: No Hearing needs: No Vision needs: No Assessment & Plan Assessment & Plan (1) HLD (hyperlipidemia): Code(s): E78.5 - Hyperlipidemia, unspecified Category: Medical Qualifiers: Hyperlipidemia type: mixed hyperlipidemia Qualified Code(s): E78.2 - Mixed hyperlipidemia Plan: Wt: 76 Kg ( 06/2024 ) Est kcal needs as per MSJ: 1900 (40% carb, 30% protein/fat) Est fluid needs as per 25-30 ml/d: 2300 Est prot per day as per 1 g/kg bw: 76 Recommend fiber intake : 8-10 g per day and gradually increase to 25-28 g per day for women and 35-38 g for men or as tolerated Recommend sodium intake per day : less than 2300 mg Educated patient on: ( R = reviewed V = verbalizes understanding N/R = needs review N/A = not applicable * Food sources of carbohydrate, adequate serving sizes and its role in various health conditions: NR * Differences between complex carbohydrates a simple carbohydrates, role of fiber in diet: R * Lean protein sources of foods: R * Differences between types of fats and role in diet (mono on saturated fat fatty acids, saturated fatty acids, trans fats): R * Food sources of sodium in salt and healthy modifications for heart health in kidney health: R V R/V * Vitamins and minerals: R V N/R * Healthy plate method concept: R V N/R * Physical activity: Benefits a precaution: R V N/R * Patient Instructions: Choose nutrient dense bedtime snack : yogurt with fruit or 1/2 chicken salad sandwich Coding Level of Care Code Nutr Indiv Subseq (48139) Diagnoses Mixed hyperlipidemia E78.2 Hyperlipidemia type: mixed hyperlipidemia Time Spent (min) 30
== END 2024-08-09 11:48 | disposition home or self-care (01) ==
LOC: HO.ENCR 11:33
PROVIDERS: Visit Provider Dietitian, Registered
DX: E78.2 Mixed hyperlipidemia (principal)

== ENCOUNTER → 2024-08-09 11:33 | Outpatient (BNVA) | payer MEDICARE, MEDICAID, SELFPAY | PROVIDERS: Visit Provider Dietitian, Registered | DX: E78.2 Mixed hyperlipidemia (principal); Z71.3 Dietary counseling and surveillance | CPT/HCPCS: 97803 ==

== ENCOUNTER 2024-10-19 08:53 | Outpatient (AMB) | payer MEDICARE, MEDICAID, SELFPAY ==
--- NOTE | 2024-10-19 09:00 | MHC.PC.OV ---
Vital Signs 10/19/24 09:02 Height 5 ft 8 in Weight 174 lb 6 oz BMI 26.5 BP 122/74 Blood Pressure Location Lt brachial Position Sitting Pulse 85 Pulse Source Pulse Oximeter Temp 97.7 F Temp Source Skin Pulse Oximetry (%) 95 Oxygen Delivery Method Room Air Intake Visit Reasons: 6mth f/u Intake Note: Patient is here to follow up on HLD. Furnace Utility Operator Required: No Family Readiness Support Assistant: Not Required per policy Accompanied by: Self / Same As Patient Allergies No Known Allergies Allergy (Verified 10/19/24 09:13) Medication List - Last Reconciled 10/19/24 by Liang Bautista PA-C atorvastatin 20 mg PO DAILY cetirizine (Zyrtec) 10 mg PO DAILY 90 days gabapentin 300 mg PO BEDTIME 30 days hydrocodone-acetaminophen 5-325 mg 1 tab PO ONCE PRN 5 days hydroxyzine pamoate 50 mg (2 x 25 mg) PO BID 14 days ibuprofen (IBU) 800 mg PO Q8H Tobacco use date assessed: 10/19/24 Dental Screening Dental Screen Date: 10/19/24 Did you have a dental visit in the last 12 months?: Yes Did you have a dental problem in the last 6 months where you did not have access to dental care?: No Was dental information given to patient?: Patient has dentist HPI 6mth f/u HPI Details Patient is a 49 year-old male here today for an follow-up visit. Patient has a past medical history significant for bipolar disorder, history of polysubstance use disorder, hyperlipidemia. .. Hyperlipidemia: Patient continues on statin therapy without any side effect. Most recent lipid panel showing excellent control his total cholesterol and LDL. Impaired glucose metabolism: Most recent fasting blood sugars slightly elevated at 108. He will work on dietary modifications. He is somewhat inactive due to his right knee meniscal tear at this time. Laboratory Tests 02/05/24 08:02 RBC 4.35 L Hgb 13.1 L Creatinine 0.96 Cholesterol 150 PFSH Medical History (Updated 10/19/24 @ 09:23 by Liang Bautista PA-C) Acute meniscal tear of knee Hyperlipidemia Bipolar disorder Surgical History History of tooth extraction History of surgery Family History Father CAD (coronary artery disease) Myocardial infarction Mother No problems noted. Brother Alive and well Social History Housing: House Alcohol intake: former Year quit: 2020 Patient Tobacco Use Status: Former Tobacco user Tobacco use type: Cigarette e-Cigarette/Vaping Use: Never Used Second Hand Smoke Exposure: Yes service: No Current occupational status: disabled Current occupation: mental disabled. Cognitive needs: No Hearing needs: No Vision needs: No Questionnaire PHQ-9 Over the last 2 weeks, how often have you been bothered by any of the following problems? 1. Little interest or pleasure in doing things: not at all 2. Feeling down, depressed, or hopeless: not at all 3. Trouble falling or staying asleep, or sleeping too much: not at all 4. Feeling tired or having little energy: not at all 5. Poor appetite or overeating: not at all 6. Feeling bad about yourself - or that you are a failure or have let yourself or your family down: not at all 7. Trouble concentrating on things, such as reading the newspaper or watching television: not at all 8. Moving or speaking so slowly that other people could have noticed. Or the opposite - being so fidgety or restless that you have been moving around a lot more than usual: not at all 9. Thoughts that you would be better off or of hurting yourself in some way: not at all Total score: 0 Depression Screening Interpretation: Negative Depression Screening Done: Yes 64948 - PHQ-9 Billing: Yes Source: Developed by Drs. Jatin Lee, Jenniffer Leong, Kodak Andrew and colleagues, with an educational duy from [employer]. Thrive Questionnaire Date Thrive assessed: 10/19/24 I am a: Patient What is your living situation today?: I have a steady place to live Within the past 12 months, did the food you bought not last and you didn't have the money to get more?: Never true Within the past 12 months, did you worry whether your food would run out before you got money to buy more?: Never true Do you have trouble paying for medicines?: No Do you have trouble getting transportation to medical appointments?: No Do you have trouble paying your heating and electricity bill?: No Do you have trouble taking care of your child, family member or friend?: No Do you have trouble with day-to-day activities such as bathing, preparing meals, shopping, managing finances, etc.?: No Are you currently unemployed and looking for a job?: No Are you interested in more education?: No Please select the resources that you would like help with: None Currently or been in a relationship where the following occur: No concerns reported THRIVE Score: 0 AUDIT C Alcohol Use Questionnaire (AUDIT-C) 1. How often do you have a drink containing alcohol?: Never Total Score: 0 MAGY-7 AMB Questionnaire MAGY-7 Date MAGY - 7 assessed: 10/19/24 Feeling nervous, anxious, or on edge: 0 = Not at all Not being able to stop or control worryin = Not at all Worrying too much about different things: 0 = Not at all Trouble relaxin = Not at all Being so restless that it is hard to sit still: 0 = Not at all Becoming easily annoyed or irritable: 0 = Not at all Feeling afraid as if something awful might happen: 0 = Not at all Total MAGY-7 score (0-4 normal; 5-9 mild; 10-14 moderate; 15-21 severe): 0 Source: Developed by Drs. Jatin Lee, Jenniffer Leong, Kodak Andrew and colleagues, with an educational duy from [employer]. Review of Systems Const Denies headache(s) Eyes Denies loss of vision ENT Denies vertigo, Denies dizziness, Denies headache(s) and Denies sore throat Card Denies chest pain, Denies leg edema and Denies lightheadedness Resp Denies cough, Denies hemoptysis and Denies wheezing GI Denies abdominal pain, Denies melena, Denies constipation, Denies diarrhea and Denies vomiting Denies dysuria, Denies urinary frequency and Denies urinary urgency Musc Denies arthralgias, Denies joint swelling, Denies numbness and Denies tingling Neuro Denies Abnormal speech present, Denies behavioral changes, Denies vertigo, Denies dizziness, Denies headache(s), Denies loss of vision, Denies memory loss, Denies numbness and Denies tingling Psych Denies anxiety, Denies behavioral changes, Denies depression, Denies memory loss and Denies panic attacks Arun/Lymph Denies easy bleeding and Denies easy bruising Aller/Immun Denies wheezing Physical exam (Primary Care) Vital Signs: Last Vital Signs Temp 97.7 F 10/19/24 09:02 Pulse 85 10/19/24 09:02 BP 122/74 10/19/24 09:02 Pulse Ox 95 10/19/24 09:02 Oxygen Delivery Method Room Air 10/19/24 09:02 BMI result Body Mass Index 26.5 Tobacco/Smoking Status: Tobacco use Status Tobacco use date assessed 10/19/24 10/19/24 09:09 Patient Tobacco Use Status Former Tobacco user 10/19/24 09:09 Tobacco use type Cigarette 10/19/24 09:09 e-Cigarette/Vaping Use Never Used 10/19/24 09:09 PHQ-9: PHQ-9 Score PHQ-9: Total score 0 10/19/24 09:09 Depression Screening Interpretation: Negative Thrive Assessment: Date of Thrive Assessment Date Thrive assessed 10/19/24 10/19/24 09:09 Currently or been in a relationship where the following occur: No concerns reported Const General: healthy appearing, no acute distress, alert and awake Nutritional Appearance: well nourished Orientation/consciousness: oriented to person, oriented to place and oriented to time HENMT Ears: TM's normal bilaterally General nose exam: Normal nasal mucous membranes and turbinates present Eyes Conjunctivae: conjunctivae normal Sclerae: sclerae normal Pupils: Equal, round and reactive pupils present Neck Neck: Yes no lymphadenopathy and Yes no JVD Thyroid: Thyroid normal Carotids: no bruits Resp Effort & Inspection: normal respiratory effort and not tachypneic Auscultation: no crackles, no rales, no rhonchi and no wheezes Cardio Rate: regular rate Rhythm: regular rhythm Heart sounds: no murmurs and normal S1 and S2 GI Palpation (GI): Soft to palpation, nontender, no hepatomegaly and no splenomegaly Auscultation: normal bowel sounds Skin General skin exam: no rashes or lesions noted and dry skin Neuro General: oriented to person, oriented to place and oriented to time Cranial nerves: Yes Equal, round and reactive pupils present Speech: No Abnormal speech present Gait exam (Neuro): Normal gait present Motor exam (neuro): no tremor noted Extrem Right upper extremity: full ROM Left upper extremity: full ROM Right lower extremity: full ROM; no edema Left lower extremity: full ROM; no edema Psych Mental Status: mental status grossly normal Speech and movement: Normal speech and movement present Affect: normal affect Attitude: cooperative Thought process: Normal thought process present Coding Level of Care Code Est Pt Level 4 (52595) Diagnoses Mixed hyperlipidemia E78.2 Hyperlipidemia type: mixed hyperlipidemia Impaired glucose metabolism R73.09 Internal derangement of right knee M23.91 Bipolar 1 disorder, manic, moderate F31.12 Additional Codes PHQ-9 - 22762 - PHQ-9 Billing: Yes ([id number]) Assessment & Plan Assessment & Plan (1) HLD (hyperlipidemia): Code(s): E78.5 - Hyperlipidemia, unspecified Category: Medical Qualifiers: Hyperlipidemia type: mixed hyperlipidemia Qualified Code(s): E78.2 - Mixed hyperlipidemia Plan: Patient continues on atorvastatin 20 mg. Patient continues to work on lifestyle and dietary modifications to reduce his cholesterol. Goal LDL to be below 130 (2) Impaired glucose metabolism: Code(s): R73.09 - Other abnormal glucose Category: Medical Plan: Patient's most recent fasting slightly elevated. He has been working on lifestyle and dietary modifications. He reports financial issues which has caused him not to be able to eat as well. (3) Internal derangement of right knee: Code(s): M23.91 - Unspecified internal derangement of right knee Category: Medical Plan: Patient is status post right knee meniscal repair. He continues to wear brace over his right knee. He reports he still has intermittent pain and swelling. He has not been able to skateboard like he usually does. He does use ibuprofen on nearly daily basis. (4) Bipolar 1 disorder, manic, moderate: Code(s): F31.12 - Bipolar disorder, current episode manic without psychotic features, moderate Category: Medical Plan: Continues to be well stabilized. Not on a mood stabilizer though does use gabapentin and hydroxyzine on a as needed basis. He has been sober from alcohol over the last 4 years. Medications: New acetaminophen ER (Tylenol Arthritis Pain) 650 mg PO Q12H 30 days 60 tabs 3RF M19.90 - Unspecified osteoarthritis, unspecified site, M23.91 - Unspecified internal derangement of right knee Changed From ibuprofen (IBU) 800 mg PO Q8H 30 tabs 0RF M23.91 - Unspecified internal derangement of right knee To ibuprofen (IBU) 800 mg PO Q8H 30 days PRN 90 tabs 2RF pain M23.91 - Unspecified internal derangement of right knee Refilled hydroxyzine pamoate 50 mg (2 x 25 mg) PO BID 14 days 56 caps 0RF F31.12 - Bipolar disorder, current episode manic without psychotic features, moderate cetirizine (Zyrtec) 10 mg PO DAILY 90 days 90 tabs 1RF J30.89 - Other allergic rhinitis Discontinued hydrocodone-acetaminophen 5-325 mg Partial Fill upon patient request. Discontinued Reason: Doctor's Order 1 tab PO ONCE 5 days PRN 5 tabs 0RF pain (scale score 4-6)
[2024-10-19 09:02] VITALS: BP 122/74; PULSE 85; TEMP 36.5; O2SAT 95; BMI 26.5
== END 2024-10-19 11:10 | disposition home or self-care (01) ==
PROVIDERS: Visit Provider Physician Assistant
DX: E78.2 Mixed hyperlipidemia (principal); R73.09 Other abnormal glucose; M23.91 Unspecified internal derangement of right knee; F31.12 Bipolar disorder, current episode manic without psychotic features, moderate

== ENCOUNTER → 2024-10-19 08:53 | Outpatient (BNVA) | payer MEDICARE, MEDICAID, SELFPAY | PROVIDERS: Visit Provider Physician Assistant | DX: E78.2 Mixed hyperlipidemia (principal); R73.09 Other abnormal glucose; M23.91 Unspecified internal derangement of right knee; M19.90 Unspecified osteoarthritis, unspecified site; J30.89 Other allergic rhinitis; F31.12 Bipolar disorder, current episode manic without psychotic features, moderate | CPT/HCPCS: 96127; 99212 ==